=== PATIENT | male | born 1980 | race Two or more races ===

== ENCOUNTER 2020-04-05 11:09 | Emergency (ER) | payer OTHER, SELFPAY ==
[2020-04-05 11:23] VITALS: BP 117/72; PULSE 90; RESP 16; TEMP 37.2; O2SAT 98; BMI 31.5
--- NOTE | 2020-04-05 11:49 | ED_ITS ---
HPI - Eye Problem General Chief complaint: Eye Problems Stated complaint: EYE ISSUE Time Seen by Provider: 04/05/20 11:35 Source: patient Mode of arrival: ambulatory Limitations: no limitations History of Present Illness HPI Narrative: 39-year-old male with a past medical history of hypertension presenting to the ED with complaints of right upper eyelid swelling/redness/irritation for the past day. Reports that he has been rubbing it and has mild purulent discharge coming from the eye. Otherwise denies any other symptoms complaints or concerns at this time. chief complaint: eye redness Onset (ago): day(s) (Yesterday worse today) Onset description: gradual Duration: constant Location: right eye Eye Symptoms: burning, redness, itching and discharge Place: home Mechanism: none Severity: moderate If Pain, Quality: other (Burning sensation) Associated symptoms: none Treatments Prior to Arrival: none Related Data Home Medications Medication Instructions Recorded Confirmed lisinopril 10 mg tablet 10 mg PO DAILY 03/17/20 propranolol 20 mg tablet 30 mg PO BID tab 03/17/20 Previous Rx's Medication Instructions Recorded loratadine 10 mg capsule 10 mg PO DAILY 90 Days #90 cap 04/03/20 cephalexin 500 mg PO BID 10 Days #20 cap 04/05/20 doxycycline monohydrate 100 mg PO BID 10 Days #20 cap 04/05/20 Allergies Allergy/AdvReac Type Severity Reaction Status Date / Time acetaminophen [From TYLENOL] Allergy Unknown UNKNOWN Verified 04/05/20 11:49 aspirin Allergy Unknown Unknown Verified 04/05/20 11:49 haloperidol [Haldol] Allergy Unknown Unknown Verified 04/05/20 11:49 risperidone [Risperdal] Allergy Unknown Unknown Verified 04/05/20 11:49 tramadol Allergy Unknown Unknown Verified 04/05/20 11:49 Aspirin Allergy Unknown Unknown Uncoded 04/05/20 11:49 Motrin Allergy Unknown Unknown Uncoded 04/05/20 11:49 Review of Systems Review of Systems: Constitutional : No Fever, No Chills, No Fatigue, No Malaise ENT/Mouth : No Hearing loss, No Ear Pain, No Nasal Congestion, No Sinus Pain, No sore throat, No Rhinorrhea Eyes: + eyelid Swelling, + eyelid Redness, + discharge, No Foreign Body, No Vision Changes, No Eye Pain, Cardiovascular : No Chest Pain, No SOB Respiratory : No Cough, No Sputum, No Wheezing Gastrointestinal : No Nausea, No Vomiting, No Diarrhea, No Constipation, No abdominal Pain Genitourinary : No Dysuria Musculoskeletal : No joint pain, No Myalgias, No Joint Swelling Skin : No Skin Lesions, No rash Neuro : No Weakness, No Numbness, No Paresthesias, No Loss of Consciousness, No Dizziness, No Headache Yes all other systems are reviewed and are negative [facility] Past Medical History Attestation statement: The following information was validated with the patient. Social History Social History Advance Directives: No Advance Directives Information Provided: No Physical Exam Vital Signs: Vital Signs: Last Vital Signs Temp 98.9 F 04/05/20 11:23 Pulse 90 04/05/20 11:23 Resp 16 04/05/20 11:23 BP 117/72 04/05/20 11:23 Pulse Ox 98 04/05/20 11:23 Body Mass Index 31.5 vital signs have been reviewed as normal and appeared to be correct. Blood pressure normal. Heart rate normal. Respiration rate normal. Temperature normal. Oxygen saturation normal. Appearance: Alert. Oriented X3. No acute distress. Head: Normal external exam. Normocephalic. Atraumatic. No Mercer signs noted. No raccoon eyes noted Eyes: PERRLA. EOMI. Conjunctiva are normal. Cornea are normal. Funduscopic exam within normal limits. Sclera normal. Right upper eyelid erythemous c mild sts and purulent drainage. Right lower eyelid normal WNL. Left upper and lower eyelid WNL. No papilledema noted. Anterior chamber normal. No photophobia noted. ENT: EAC normal. TM's Normal. Pharynx normal. Uvula midline. Moist mucous membranes. Neck: Normal inspection. Neck supple. FROM. No adenopathy. No meningeal signs. CVS: Normal heart rate and rhythm. Heart sound normal. No murmurs noted. Pulses normal throughout. Respiratory: No respiratory distress. Painless inspiration. Breath sounds normal. Back: Full range of motion noted. Skin: Skin warm and dry. Normal skin color. Normal skin turgor. No rashes/lesions/lacerations noted. Extremities: Extremities exhibit normal range of motion. Extremities nontender. Neuro: Oriented X 3. No motor deficit. No sensory deficit. Reflexes normal. Course Course Course Narrative: 39-year-old male presenting to the ED with complaints of right upper eyelid swelling/erythema/irritation/purulent discharge that started yesterday worse today after rubbing his eye. On exam patient is noted to have moderate soft tissue swelling to right upper eyelid with erythema and purulent drainage consistent with blepharitis/preseptal cellulitis not consistent with orbital cellulitis. Patient has extraocular movements intact. 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 Patient understands agrees the plan. MDM - Eye Problem Medical Records Attestation: I reviewed the patient's medical records. Discharge Plan Discharge Clinical Impression: Periorbital cellulitis Qualifiers: Laterality: right Qualified Code(s): L03.213 - Periorbital cellulitis Blepharitis of eyelid of right eye Qualifiers: Blepharitis type: unspecified type Eyelid: upper Qualified Code(s): H01.001 - Unspecified blepharitis right upper eyelid Patient Disposition: Home, Self-Care Instructions: Blepharitis (ED), Periorbital Cellulitis in Adults (ED) Prescriptions: New doxycycline monohydrate 100 mg capsule 100 mg PO BID 10 Days Qty: 20 RF: 0 cephalexin 500 mg capsule 500 mg PO BID 10 Days Qty: 20 RF: 0 No Action loratadine 10 mg capsule 10 mg PO DAILY 90 Days Qty: 90 RF: 1 Referrals: Reece,Neda Dicekrson MD [Primary Care Provider] - 2 days Stand Alone Forms: Work/School Release Print Language: Belarusian
[2020-04-05] MEDS: Erythromycin Base 0.5% Oph Oin 1 GM TUBE 1 CM EYE-RIGHT (11:58)
[2020-04-05] MEDS: cephALEXin 500 MG CAPSULE PO (11:58)
== END 2020-04-05 12:06 | disposition home or self-care (01) ==
PROVIDERS: Emergency Provider Emergency Medicine; PCP Internal Medicine
DX: L03.213 Periorbital cellulitis (principal); H01.001 Unspecified blepharitis right upper eyelid; H57.11 Ocular pain, right eye; Z79.899 Other long term (current) drug therapy
CPT/HCPCS: 99283

== ENCOUNTER 2021-02-11 11:56 | Outpatient (REF) | payer MEDICAID, SELFPAY | END 2021-02-11 11:57 | disposition home or self-care (01) | LOC: HO.LNP 11:56 | PROVIDERS: Visit Provider Psychiatry & Neurology Psychiatry | DX: Z13.89 Encounter for screening for other disorder (principal) ==

== ENCOUNTER 2021-06-18 08:55 | Outpatient (REF) | payer OTHER, SELFPAY ==
[2021-06-18 09:01] LABS: MANUAL DIFF FLAG NO
[2021-06-18 09:37] LABS: Basophils Percent Auto 0.3 % (0-2); Eosinophils Absolute Auto 0.3 X10*3/uL (0.0-0.4); Eosinophils Percent Auto 3.9 % (0-4); Hematocrit 40.2 % (42.0-52.0); Hemoglobin 13.5 g/dl (14.0-18.0); Imm Gran Abs Auto 0.03 X10*3/uL (0.00-0.03); Imm Gran Pct Auto 0.5 % (0.0-0.4); Lymphocytes Absolute Auto 2.4 X10*3/uL (1.2-4.9); Lymphocytes Percent Auto 37.2 % (20-40); Mean Corpuscular HGB Conc 33.6 g/dl (31.0-36.0); Mean Corpuscular Hemoglobin 29.3 pg (27.0-33.0); Mean Corpuscular Volume 87.4 fL (80.0-98.0); Mean Platelet Volume 11.6 fL (9.4-12.4); Monocytes Absolute Auto 0.5 X10*3/uL (0.1-1.2); Monocytes Percent Auto 7.6 % (2-11); Neutrophils Absolute Auto 3.3 x10*3/uL (2.0-8.3); Neutrophils Percent Auto 50.5 % (45-73); Platelet Count 133 X10*3/uL (160-400); Red Cell Distribution Width 13.3 % (11.0-16.0); White Blood Count 6.5 X10*3/uL (4.8-10.8)
== END 2021-06-18 08:56 | disposition home or self-care (01) ==
LOC: HO.LNP 08:55
PROVIDERS: Visit Provider Psychiatry & Neurology Psychiatry
DX: Z79.899 Other long term (current) drug therapy (principal)
CPT/HCPCS: 85025

== ENCOUNTER 2021-07-15 10:08 | Outpatient (REF) | payer OTHER, SELFPAY ==
[2021-07-15 10:15] LABS: MANUAL DIFF FLAG NO
[2021-07-15 10:21] LABS: Basophils Percent Auto 0.3 % (0-2); Eosinophils Absolute Auto 0.3 X10*3/uL (0.0-0.4); Eosinophils Percent Auto 4.8 % (0-4); Hematocrit 38.9 % (42.0-52.0); Hemoglobin 13.1 g/dl (14.0-18.0); Imm Gran Abs Auto 0.02 X10*3/uL (0.00-0.03); Imm Gran Pct Auto 0.3 % (0.0-0.4); Lymphocytes Absolute Auto 2.1 X10*3/uL (1.2-4.9); Lymphocytes Percent Auto 33.3 % (20-40); Mean Corpuscular HGB Conc 33.7 g/dl (31.0-36.0); Mean Corpuscular Hemoglobin 29.2 pg (27.0-33.0); Mean Corpuscular Volume 86.8 fL (80.0-98.0); Mean Platelet Volume 11.5 fL (9.4-12.4); Monocytes Absolute Auto 0.4 X10*3/uL (0.1-1.2); Monocytes Percent Auto 6.4 % (2-11); Neutrophils Absolute Auto 3.5 x10*3/uL (2.0-8.3); Neutrophils Percent Auto 54.9 % (45-73); Platelet Count 156 X10*3/uL (160-400); Red Blood Count 4.48 X10*6/uL (4.60-5.80); Red Cell Distribution Width 13.1 % (11.0-16.0); White Blood Count 6.4 X10*3/uL (4.8-10.8)
== END 2021-07-15 10:09 | disposition home or self-care (01) ==
LOC: HO.LNP 10:08
PROVIDERS: Visit Provider Psychiatry & Neurology Psychiatry
DX: F25.0 Schizoaffective disorder, bipolar type (principal)
CPT/HCPCS: 85025

== ENCOUNTER 2021-08-12 10:59 | Outpatient (REF) | payer OTHER, SELFPAY ==
[2021-08-12 11:06] LABS: MANUAL DIFF FLAG NO
[2021-08-12 11:10] LABS: Basophils Percent Auto 0.3 % (0-2); Eosinophils Absolute Auto 0.5 X10*3/uL (0.0-0.4); Eosinophils Percent Auto 6.2 % (0-4); Hematocrit 39.7 % (42.0-52.0); Hemoglobin 13.8 g/dl (14.0-18.0); Imm Gran Abs Auto 0.03 X10*3/uL (0.00-0.03); Imm Gran Pct Auto 0.4 % (0.0-0.4); Lymphocytes Absolute Auto 2.9 X10*3/uL (1.2-4.9); Lymphocytes Percent Auto 38.2 % (20-40); Mean Corpuscular HGB Conc 34.8 g/dl (31.0-36.0); Mean Corpuscular Hemoglobin 29.9 pg (27.0-33.0); Mean Corpuscular Volume 86.1 fL (80.0-98.0); Monocytes Absolute Auto 0.5 X10*3/uL (0.1-1.2); Monocytes Percent Auto 6.3 % (2-11); Neutrophils Absolute Auto 3.6 x10*3/uL (2.0-8.3); Neutrophils Percent Auto 48.6 % (45-73); Platelet Count 158 X10*3/uL (160-400); Red Blood Count 4.61 X10*6/uL (4.60-5.80); Red Cell Distribution Width 12.9 % (11.0-16.0); White Blood Count 7.5 X10*3/uL (4.8-10.8)
== END 2021-08-12 11:00 | disposition home or self-care (01) ==
LOC: HO.LNP 10:59
PROVIDERS: Visit Provider Psychiatry & Neurology Psychiatry
DX: F25.0 Schizoaffective disorder, bipolar type (principal)
CPT/HCPCS: 85025

== ENCOUNTER 2021-09-16 09:16 | Outpatient (REF) | payer OTHER, SELFPAY ==
[2021-09-16 09:30] LABS: Basophils Percent Auto 0.3 % (0-2); Eosinophils Absolute Auto 0.4 X10*3/uL (0.0-0.4); Eosinophils Percent Auto 5.9 % (0-4); Hematocrit 40.1 % (42.0-52.0); Hemoglobin 13.6 g/dl (14.0-18.0); Imm Gran Abs Auto 0.02 X10*3/uL (0.00-0.03); Imm Gran Pct Auto 0.3 % (0.0-0.4); Lymphocytes Absolute Auto 2.4 X10*3/uL (1.2-4.9); Lymphocytes Percent Auto 36.7 % (20-40); MANUAL DIFF FLAG SCAN; Mean Corpuscular HGB Conc 33.9 g/dl (31.0-36.0); Mean Corpuscular Hemoglobin 29.2 pg (27.0-33.0); Mean Corpuscular Volume 86.2 fL (80.0-98.0); Monocytes Absolute Auto 0.5 X10*3/uL (0.1-1.2); Monocytes Percent Auto 7.2 % (2-11); Neutrophils Absolute Auto 3.3 x10*3/uL (2.0-8.3); Neutrophils Percent Auto 49.6 % (45-73); PLT CLUMP 1; Red Blood Count 4.65 X10*6/uL (4.60-5.80); Red Cell Distribution Width 13.2 % (11.0-16.0); SCAN SMEAR FLAG 1
[2021-09-16 10:17] LABS: White Blood Count 6.6 X10*3/uL (4.8-10.8)
[2021-09-16 10:18] LABS: Platelet Count 138 X10*3/uL (160-400)
[2021-09-16 13:15] LABS: SLIDE REVIEW VERIFIED
== END 2021-09-16 09:17 | disposition home or self-care (01) ==
LOC: HO.LNP 09:16
PROVIDERS: Visit Provider Psychiatry & Neurology Psychiatry
DX: F25.0 Schizoaffective disorder, bipolar type (principal)
CPT/HCPCS: 85025

== ENCOUNTER 2021-10-14 10:45 | Outpatient (REF) | payer OTHER, SELFPAY ==
[2021-10-14 11:06] LABS: Hematocrit 40.3 % (42.0-52.0); Hemoglobin 13.4 g/dl (14.0-18.0); Mean Corpuscular HGB Conc 33.3 g/dl (31.0-36.0); Mean Corpuscular Hemoglobin 28.9 pg (27.0-33.0); Mean Corpuscular Volume 86.9 fL (80.0-98.0); Mean Platelet Volume 11.4 fL (9.4-12.4); Platelet Count 143 X10*3/uL (160-400); Red Blood Count 4.64 X10*6/uL (4.60-5.80); White Blood Count 7.9 X10*3/uL (4.8-10.8)
[2021-10-14 11:50] LABS: Valproate 60.9 mcg/mL (50.0-100.0)
== END 2021-10-14 10:46 | disposition home or self-care (01) ==
LOC: HO.LNP 10:45
PROVIDERS: Visit Provider Psychiatry & Neurology Psychiatry
DX: F25.0 Schizoaffective disorder, bipolar type (principal); Z79.899 Other long term (current) drug therapy
CPT/HCPCS: 80164; 85027

== ENCOUNTER 2021-10-15 08:53 | Outpatient (REF) | payer OTHER, SELFPAY ==
[2021-10-15 09:14] LABS: MANUAL DIFF FLAG NO
[2021-10-15 09:29] LABS: Basophils Percent Auto 0.3 % (0-2); Eosinophils Absolute Auto 0.5 X10*3/uL (0.0-0.4); Eosinophils Percent Auto 6.8 % (0-4); Hematocrit 39.5 % (42.0-52.0); Hemoglobin 13.6 g/dl (14.0-18.0); Imm Gran Abs Auto 0.03 X10*3/uL (0.00-0.03); Imm Gran Pct Auto 0.4 % (0.0-0.4); Lymphocytes Absolute Auto 2.7 X10*3/uL (1.2-4.9); Lymphocytes Percent Auto 37.5 % (20-40); Mean Corpuscular HGB Conc 34.4 g/dl (31.0-36.0); Mean Corpuscular Hemoglobin 29.4 pg (27.0-33.0); Mean Corpuscular Volume 85.5 fL (80.0-98.0); Mean Platelet Volume 11.1 fL (9.4-12.4); Monocytes Absolute Auto 0.5 X10*3/uL (0.1-1.2); Monocytes Percent Auto 6.8 % (2-11); Neutrophils Absolute Auto 3.5 x10*3/uL (2.0-8.3); Neutrophils Percent Auto 48.2 % (45-73); Platelet Count 141 X10*3/uL (160-400); Red Blood Count 4.62 X10*6/uL (4.60-5.80); Red Cell Distribution Width 12.9 % (11.0-16.0); White Blood Count 7.2 X10*3/uL (4.8-10.8)
[2021-10-15 09:42] LABS: Estimated Average Glucose 111 mg/dL; Hemoglobin A1c % 5.5 %
[2021-10-15 09:55] LABS: Alanine Aminotransferase 49 U/L (0-40); Albumin Level 4.5 g/dL (3.5-5.0); Alkaline Phosphatase 86 U/L (39-117); Anion Gap 15 (12-20); Aspartate Amino Transferase 24 U/L (5-37); Bilirubin Total 0.3 mg/dL (0.0-1.0); Blood Urea Nitrogen 11 mg/dL (9-16); Calcium 9.4 mg/dL (8.4-10.2); Carbon Dioxide 26 mmol/L (22-29); Chloride 103 mmol/L (96-108); Cholesterol 202 mg/dL; Estimated Glomerular Filt Rate > 60; Glucose Random 113 mg/dL (60-115); HDL Cholesterol 37 mg/dL; LDL Cholesterol Calculated 132 mg/dl; Potassium 4.2 mmol/L (3.3-5.1); Sodium 140 mmol/L (135-145); Total Protein 7.3 g/dL (6.5-8.0); Triglycerides 165 mg/dL
[2021-10-15 10:15] LABS: Thyroid Stimulating Hormone 2.06 uIU/mL (0.32-4.0)
[2021-10-15 10:24] LABS: Gamma Glutamyl Transpeptidase 111 U/L (11-51)
== END 2021-10-15 08:54 | disposition home or self-care (01) ==
LOC: HO.LNP 08:53
PROVIDERS: Visit Provider Psychiatry & Neurology Psychiatry
DX: F25.0 Schizoaffective disorder, bipolar type (principal)
CPT/HCPCS: 80053; 80061; 82977; 83036; 84443; 85025

== ENCOUNTER 2021-11-19 18:04 | Outpatient (REF) | payer OTHER, SELFPAY ==
[2021-11-19 18:07] LABS: MANUAL DIFF FLAG NO
[2021-11-19 18:26] LABS: Basophils Percent Auto 0.2 % (0-2); Eosinophils Absolute Auto 0.3 X10*3/uL (0.0-0.4); Eosinophils Percent Auto 3.2 % (0-4); Hematocrit 38.5 % (42.0-52.0); Hemoglobin 13.3 g/dl (14.0-18.0); Imm Gran Abs Auto 0.06 X10*3/uL (0.00-0.03); Imm Gran Pct Auto 0.7 % (0.0-0.4); Lymphocytes Absolute Auto 2.8 X10*3/uL (1.2-4.9); Lymphocytes Percent Auto 34.5 % (20-40); Mean Corpuscular HGB Conc 34.5 g/dl (31.0-36.0); Mean Corpuscular Hemoglobin 28.9 pg (27.0-33.0); Mean Corpuscular Volume 83.7 fL (80.0-98.0); Mean Platelet Volume 11.2 fL (9.4-12.4); Monocytes Absolute Auto 0.4 X10*3/uL (0.1-1.2); Monocytes Percent Auto 5.1 % (2-11); Neut%MD 56.3 %; Neutrophils Absolute Auto 4.6 x10*3/uL (2.0-8.3); Neutrophils Percent Auto 56.3 % (45-73); Platelet Count 187 X10*3/uL (160-400); WBCANC 8.1 X10*3/uL; White Blood Count 8.1 X10*3/uL (4.8-10.8)
== END 2021-11-19 18:05 | disposition home or self-care (01) ==
LOC: HO.LNP 18:04
PROVIDERS: Visit Provider Psychiatry & Neurology Psychiatry
DX: F25.0 Schizoaffective disorder, bipolar type (principal)
CPT/HCPCS: 85025

== ENCOUNTER 2021-12-17 12:10 | Outpatient (REF) | payer OTHER, SELFPAY ==
[2021-12-17 12:33] LABS: Hematocrit 42.1 % (42.0-52.0); Mean Corpuscular HGB Conc 33.3 g/dl (31.0-36.0); Mean Corpuscular Hemoglobin 29.2 pg (27.0-33.0); Mean Corpuscular Volume 87.7 fL (80.0-98.0); Mean Platelet Volume 12.1 fL (9.4-12.4); Platelet Count 177 X10*3/uL (160-400); Red Cell Distribution Width 12.9 % (11.0-16.0); White Blood Count 7.4 X10*3/uL (4.8-10.8)
== END 2021-12-17 12:11 | disposition home or self-care (01) ==
LOC: HO.LNP 12:10
PROVIDERS: Visit Provider Psychiatry & Neurology Psychiatry
DX: F25.0 Schizoaffective disorder, bipolar type (principal)
CPT/HCPCS: 85027

== ENCOUNTER 2022-01-07 08:59 | Outpatient (REF) | payer OTHER, SELFPAY ==
--- NOTE | ~2022-01-07 | XR_ITS ---
EXAMINATION: XR chest 2V CLINICAL INFORMATION: Reason for Exam Z98.890 - Other specified postprocedural states COMPARISON: Chest radiograph 05/27/2016 TECHNIQUE: 2 views of the chest FINDINGS: Clear lungs. No pneumothorax or pleural effusion. Normal cardiomediastinal silhouette. Median sternotomy wires. XR/XR chest 2V Impression: * Clear lungs.
[2022-01-07 09:19] LABS: MANUAL DIFF FLAG NO
[2022-01-07 09:50] LABS: Basophils Percent Auto 0.3 % (0-2); Eosinophils Absolute Auto 0.3 X10*3/uL (0.0-0.4); Eosinophils Percent Auto 4.9 % (0-4); Hematocrit 39.6 % (42.0-52.0); Hemoglobin 13.6 g/dl (14.0-18.0); Imm Gran Abs Auto 0.02 X10*3/uL (0.00-0.03); Imm Gran Pct Auto 0.3 % (0.0-0.4); Lymphocytes Percent Auto 33.9 % (20-40); Mean Corpuscular HGB Conc 34.3 g/dl (31.0-36.0); Mean Corpuscular Hemoglobin 29.7 pg (27.0-33.0); Mean Corpuscular Volume 86.5 fL (80.0-98.0); Mean Platelet Volume 11.4 fL (9.4-12.4); Monocytes Absolute Auto 0.3 X10*3/uL (0.1-1.2); Monocytes Percent Auto 5.6 % (2-11); Neutrophils Absolute Auto 3.2 x10*3/uL (2.0-8.3); Platelet Count 141 X10*3/uL (160-400); Red Blood Count 4.58 X10*6/uL (4.60-5.80); Red Cell Distribution Width 12.5 % (11.0-16.0); White Blood Count 5.8 X10*3/uL (4.8-10.8)
[2022-01-07 10:17] LABS: Estimated Average Glucose 108 mg/dL; Hemoglobin A1c % 5.4 %
[2022-01-07 10:18] LABS: Estimated Average Glucose 108 mg/dL; Hemoglobin A1c % 5.4 %
[2022-01-07 10:21] LABS: Alanine Aminotransferase 52 U/L (0-40); Albumin Level 4.7 g/dL (3.5-5.0); Alkaline Phosphatase 85 U/L (39-117); Anion Gap 16 (12-20); Aspartate Amino Transferase 28 U/L (5-37); Bilirubin Total 0.8 mg/dL (0.0-1.0); Blood Urea Nitrogen 17 mg/dL (9-16); Calcium 9.5 mg/dL (8.4-10.2); Carbon Dioxide 26 mmol/L (22-29); Chloride 101 mmol/L (96-108); Cholesterol 189 mg/dL; Estimated Glomerular Filt Rate > 60; Glucose Random 119 mg/dL (60-115); HDL Cholesterol 40 mg/dL; LDL Cholesterol Calculated 122 mg/dl; Potassium 4.2 mmol/L (3.3-5.1); Sodium 139 mmol/L (135-145); Total Protein 7.5 g/dL (6.5-8.0); Triglycerides 138 mg/dL
[2022-01-07 10:27] LABS: B Type Natriuretic Peptide 60 pg/mL (<100)
[2022-01-07 10:39] LABS: Free T4 (Free Thyroxine) 1.12 ng/dL (0.71-1.85)
[2022-01-07 10:42] LABS: Free T4 (Free Thyroxine) 0.99 ng/dL (0.71-1.85); Thyroid Stimulating Hormone 1.94 uIU/mL (0.32-4.0)
[2022-01-07 10:48] LABS: Valproate 56.8 mcg/mL (50.0-100.0)
[2022-01-07 11:16] LABS: Folate 6.7 ng/mL (> or = 4.0); Vitamin B12 326 pg/mL (200-900)
== END 2022-01-07 09:00 | disposition home or self-care (01) ==
LOC: HO.XRAY 08:59
PROVIDERS: Absent Provider Internal Medicine; PCP Internal Medicine; Visit Provider Psychiatry & Neurology Psychiatry
DX: I10 Essential (primary) hypertension (principal); R73.02 Impaired glucose tolerance (oral); K21.9 Gastro-esophageal reflux disease without esophagitis; E78.00 Pure hypercholesterolemia, unspecified; Z86.79 Personal history of other diseases of the circulatory system; Z98.890 Other specified postprocedural states; Z79.899 Other long term (current) drug therapy
CPT/HCPCS: 36415; 71046; 80053; 80061; 80164; 82607; 82746; 83036; 83880; 84439; 84443; 85025

== ENCOUNTER 2022-01-14 10:18 | Outpatient (REF) | payer OTHER, SELFPAY ==
[2022-01-14 10:26] LABS: MANUAL DIFF FLAG NO
[2022-01-14 10:29] LABS: Basophils Percent Auto 0.3 % (0-2); Eosinophils Absolute Auto 0.3 X10*3/uL (0.0-0.4); Eosinophils Percent Auto 4.2 % (0-4); Hematocrit 42.6 % (42.0-52.0); Hemoglobin 14.3 g/dl (14.0-18.0); Imm Gran Abs Auto 0.03 X10*3/uL (0.00-0.03); Imm Gran Pct Auto 0.4 % (0.0-0.4); Lymphocytes Absolute Auto 2.5 X10*3/uL (1.2-4.9); Lymphocytes Percent Auto 35.4 % (20-40); Mean Corpuscular HGB Conc 33.6 g/dl (31.0-36.0); Mean Corpuscular Hemoglobin 29.1 pg (27.0-33.0); Mean Corpuscular Volume 86.6 fL (80.0-98.0); Monocytes Absolute Auto 0.4 X10*3/uL (0.1-1.2); Monocytes Percent Auto 6.3 % (2-11); Neutrophils Absolute Auto 3.7 x10*3/uL (2.0-8.3); Neutrophils Percent Auto 53.4 % (45-73); Platelet Count 154 X10*3/uL (160-400); Red Blood Count 4.92 X10*6/uL (4.60-5.80); Red Cell Distribution Width 12.6 % (11.0-16.0); White Blood Count 6.9 X10*3/uL (4.8-10.8)
== END 2022-01-14 10:19 | disposition home or self-care (01) ==
LOC: HO.LNP 10:18
PROVIDERS: Visit Provider Psychiatry & Neurology Psychiatry
DX: F25.0 Schizoaffective disorder, bipolar type (principal)
CPT/HCPCS: 85025

== ENCOUNTER 2022-02-10 09:37 | Outpatient (REF) | payer OTHER, SELFPAY ==
[2022-02-10 09:47] LABS: MANUAL DIFF FLAG NO
[2022-02-10 09:49] LABS: Basophils Percent Auto 0.4 % (0-2); Eosinophils Absolute Auto 0.3 X10*3/uL (0.0-0.4); Eosinophils Percent Auto 3.7 % (0-4); Hematocrit 40.3 % (42.0-52.0); Hemoglobin 13.7 g/dl (14.0-18.0); Imm Gran Abs Auto 0.03 X10*3/uL (0.00-0.03); Imm Gran Pct Auto 0.4 % (0.0-0.4); Lymphocytes Absolute Auto 2.9 X10*3/uL (1.2-4.9); Lymphocytes Percent Auto 36.1 % (20-40); Mean Corpuscular Hemoglobin 28.8 pg (27.0-33.0); Mean Corpuscular Volume 84.8 fL (80.0-98.0); Mean Platelet Volume 10.7 fL (9.4-12.4); Monocytes Absolute Auto 0.5 X10*3/uL (0.1-1.2); Monocytes Percent Auto 6.7 % (2-11); Neutrophils Absolute Auto 4.2 x10*3/uL (2.0-8.3); Neutrophils Percent Auto 52.7 % (45-73); Platelet Count 167 X10*3/uL (160-400); Red Blood Count 4.75 X10*6/uL (4.60-5.80); Red Cell Distribution Width 12.7 % (11.0-16.0); White Blood Count 8.1 X10*3/uL (4.8-10.8)
== END 2022-02-10 09:38 | disposition home or self-care (01) ==
LOC: HO.LNP 09:37
PROVIDERS: Visit Provider Psychiatry & Neurology Psychiatry
DX: F25.0 Schizoaffective disorder, bipolar type (principal)
CPT/HCPCS: 85025

== ENCOUNTER 2022-03-18 09:38 | Outpatient (REF) | payer OTHER, SELFPAY ==
[2022-03-18 09:45] LABS: MANUAL DIFF FLAG NO
[2022-03-18 09:50] LABS: Basophils Percent Auto 0.3 % (0-2); Eosinophils Absolute Auto 0.3 X10*3/uL (0.0-0.4); Eosinophils Percent Auto 3.6 % (0-4); Hematocrit 40.4 % (42.0-52.0); Hemoglobin 13.7 g/dl (14.0-18.0); Imm Gran Abs Auto 0.03 X10*3/uL (0.00-0.03); Imm Gran Pct Auto 0.4 % (0.0-0.4); Lymphocytes Absolute Auto 2.4 X10*3/uL (1.2-4.9); Lymphocytes Percent Auto 34.4 % (20-40); Mean Corpuscular HGB Conc 33.9 g/dl (31.0-36.0); Mean Corpuscular Hemoglobin 28.6 pg (27.0-33.0); Mean Corpuscular Volume 84.3 fL (80.0-98.0); Mean Platelet Volume 11.6 fL (9.4-12.4); Monocytes Absolute Auto 0.4 X10*3/uL (0.1-1.2); Monocytes Percent Auto 5.6 % (2-11); Neutrophils Absolute Auto 3.9 x10*3/uL (2.0-8.3); Neutrophils Percent Auto 55.7 % (45-73); Platelet Count 154 X10*3/uL (160-400); Red Blood Count 4.79 X10*6/uL (4.60-5.80); Red Cell Distribution Width 12.7 % (11.0-16.0)
== END 2022-03-18 09:39 | disposition home or self-care (01) ==
LOC: HO.LNP 09:38
PROVIDERS: Visit Provider Psychiatry & Neurology Psychiatry
DX: F25.0 Schizoaffective disorder, bipolar type (principal)
CPT/HCPCS: 85025

== ENCOUNTER 2022-04-15 08:57 | Outpatient (REF) | payer OTHER, SELFPAY ==
[2022-04-15 09:17] LABS: Hemoglobin 12.9 g/dl (14.0-18.0); Mean Corpuscular HGB Conc 33.9 g/dl (31.0-36.0); Mean Corpuscular Hemoglobin 29.3 pg (27.0-33.0); Mean Corpuscular Volume 86.4 fL (80.0-98.0); Mean Platelet Volume 11.7 fL (9.4-12.4); Platelet Count 152 X10*3/uL (160-400); White Blood Count 6.8 X10*3/uL (4.8-10.8)
== END 2022-04-15 08:58 | disposition home or self-care (01) ==
LOC: HO.LNP 08:57
PROVIDERS: Visit Provider Psychiatry & Neurology Psychiatry
DX: F25.0 Schizoaffective disorder, bipolar type (principal)
CPT/HCPCS: 85027

== ENCOUNTER 2022-06-17 09:26 | Outpatient (REF) | payer OTHER, SELFPAY ==
[2022-06-17 09:33] LABS: MANUAL DIFF FLAG NO
[2022-06-17 09:36] LABS: Basophils Absolute Auto 0.1 X10*3/uL (0.0-0.2); Basophils Percent Auto 0.6 % (0-2); Eosinophils Absolute Auto 0.6 X10*3/uL (0.0-0.4); Eosinophils Percent Auto 7.5 % (0-4); Hematocrit 42.5 % (42.0-52.0); Hemoglobin 14.4 g/dl (14.0-18.0); Imm Gran Abs Auto 0.04 X10*3/uL (0.00-0.03); Imm Gran Pct Auto 0.5 % (0.0-0.4); Lymphocytes Absolute Auto 2.8 X10*3/uL (1.2-4.9); Lymphocytes Percent Auto 35.4 % (20-40); Mean Corpuscular HGB Conc 33.9 g/dl (31.0-36.0); Mean Corpuscular Hemoglobin 29.1 pg (27.0-33.0); Mean Corpuscular Volume 85.9 fL (80.0-98.0); Mean Platelet Volume 10.8 fL (9.4-12.4); Monocytes Absolute Auto 0.5 X10*3/uL (0.1-1.2); Monocytes Percent Auto 6.2 % (2-11); Neutrophils Percent Auto 49.8 % (45-73); Platelet Count 155 X10*3/uL (160-400); Red Blood Count 4.95 X10*6/uL (4.60-5.80); Red Cell Distribution Width 12.8 % (11.0-16.0)
== END 2022-06-17 09:27 | disposition home or self-care (01) ==
LOC: HO.LNP 09:26
PROVIDERS: Visit Provider Psychiatry & Neurology Psychiatry
DX: F25.0 Schizoaffective disorder, bipolar type (principal)
CPT/HCPCS: 85025

== ENCOUNTER 2022-11-09 14:09 | Outpatient (AMB) | payer OTHER, SELFPAY ==
--- NOTE | 2022-11-09 14:28 | A.OFFPC_ITS ---
Vital Signs 11/09/22 14:29 Height 5 ft 10 in Weight 208 lb BMI 29.8 BP 132/76 Blood Pressure Location Lt brachial Position Sitting Pulse 77 Pulse Source Pulse Oximeter Pulse Oximetry (%) 98 Oxygen Delivery Method Room Air Intake Visit Reasons: AVRepair, HTN Allergies acetaminophen [From TYLENOL] Allergy (Unknown, Verified 11/09/22 14:29) UNKNOWN aspirin Allergy (Unknown, Verified 11/09/22 14:29) Unknown haloperidol [Haldol] Allergy (Unknown, Verified 11/09/22 14:29) Unknown risperidone [Risperdal] Allergy (Unknown, Verified 11/09/22 14:29) Unknown tramadol Allergy (Unknown, Verified 11/09/22 14:29) Unknown diphenhydramine [From Benadryl Allergy] Adverse Reaction (Verified 11/09/22 14:29) HTN Motrin Allergy (Unknown, Uncoded 11/09/22 14:29) Unknown Tobacco use date assessed: 07/19/22 Dental Screening Dental Screen Date: 11/09/22 Did you have a dental visit in the last 12 months?: No Did you have a dental problem in the last 6 months where you did not have access to dental care?: No Was dental information given to patient?: No HPI AVRepair, HTN HPI Details 42-year-old male witha history of schiz ophrenia with impaired glucose tolerance GERD aortic valve repair hypertension, coming in for follow-up last seen in June 2022 for physical exam. Patient was advised blood work but this was not done [facility] Medical History (Updated 11/09/22 @ 15:16 by Neda Newell MD) Obesity (BMI 30-39.9) GERD (gastroesophageal reflux disease) Schizophrenia Surgical History (Updated 07/19/22 @ 12:45 by Neda Newell MD) H/O aortic valve repair Social History (Updated 07/13/21 @ 13:18 by Neda Newell MD) Housing: Apartment Alcohol intake: never Patient Tobacco Use Status: Former Tobacco user Tobacco use type: Cigarette Years Smoked: quit smoking 2019 e-Cigarette/Vaping Use: Never Used Second Hand Smoke Exposure: No Current occupational status: employed Cognitive needs: No Hearing needs: No Vision needs: No Questionnaire PHQ-9 Over the last 2 weeks, how often have you been bothered by any of the following problems? 1. Little interest or pleasure in doing things: not at all 2. Feeling down, depressed, or hopeless: not at all 3. Trouble falling or staying asleep, or sleeping too much: not at all 4. Feeling tired or having little energy: not at all 5. Poor appetite or overeating: not at all 6. Feeling bad about yourself - or that you are a failure or have let yourself or your family down: not at all 7. Trouble concentrating on things, such as reading the newspaper or watching television: not at all 8. Moving or speaking so slowly that other people could have noticed. Or the opposite - being so fidgety or restless that you have been moving around a lot more than usual: not at all 9. Thoughts that you would be better off or of hurting yourself in some way: not at all Total score: 0 Depression Screening Interpretation: Negative Source: Developed by Drs. Jag Cleary, Paris Juárez, Paulino Slater and colleagues, with an educational alysha from [employer]. Thrive Questionnaire Date Thrive assessed: 07/19/22 AUDIT C Alcohol Use Questionnaire (AUDIT-C) 1. How often do you have a drink containing alcohol?: Never 2. How many drinks containing alcohol do you have on a typical day when you are drinking?: 1 or 2 (0) 3. How often do you have six or more drinks on one occasion?: Never Total Score: 0 ALEXSANDER-7 AMB Questionnaire ALEXSANDER-7 Date ALEXSANDER - 7 assessed: 07/19/22 Source: Developed by Drs. Jag Cleary, Paris Juárez, Paulino Slater and colleagues, with an educational alysha from [employer]. Physical exam (Primary Care) Vital Signs: Last Vital Signs Pulse 77 11/09/22 14:29 BP 132/76 11/09/22 14:29 Pulse Ox 98 11/09/22 14:29 Oxygen Delivery Method Room Air 11/09/22 14:29 BMI result Body Mass Index 29.8 Tobacco/Smoking Status: Tobacco use Status Tobacco use date assessed 07/19/22 11/09/22 14:30 Patient Tobacco Use Status Former Tobacco user 11/09/22 14:30 Tobacco use type Cigarette 11/09/22 14:30 e-Cigarette/Vaping Use Never Used 11/09/22 14:30 PHQ-9: PHQ-9 Score PHQ-9: Total score 0 11/09/22 14:45 Depression Screening Interpretation: Negative Thrive Assessment: Date of Thrive Assessment Date Thrive assessed 07/19/22 11/09/22 14:30 Const General: alert; No acute distress Eyes Conjunctivae: conjunctivae normal Resp Auscultation: clear to auscultation bilaterally Cardio Rate: regular rate Rhythm: regular rhythm Heart sounds: Murmur heart sound present GI Inspection: Yes normal to inspection Extrem General: Yes normal to inspection and No edema Assessment and Plan Assessment & Plan (1) Hypertension: Code(s): I10 - Essential (primary) hypertension Qualifiers: Hypertension type: essential hypertension Qualified Code(s): I10 - Essential (primary) hypertension Plan: Continue with blood pressure medication. Decrease salt intake and exercise patient is taking lisinopril 10 mg once a day and propranolol 30 mg twice reminded about the blood work (2) Overweight (BMI 25.0-29.9): Code(s): E66.3 - Overweight Plan: Diet and exercise (3) GERD (gastroesophageal reflux disease): Code(s): K21.9 - Gastro-esophageal reflux disease without esophagitis Qualifiers: Esophagitis presence: without esophagitis Qualified Code(s): K21.9 - Gastro-esophageal reflux disease without esophagitis Plan: Avoid the foods that causes that usually spicy foods, tomato products, juices, coffee, soda and foods that your sensitive to. After eating do not lie down, allow 3-4 hours before in lie down. And keep the head of bed above 30 degrees to avoid the acid from going up. (4) Impaired glucose tolerance: Code(s): R73.02 - Impaired glucose tolerance (oral) Plan: Decrease the amount of carbohydrate intake, pasta, bread, rice and potatoes are all sugar and that is aside from all the sweet stuff, remember that fruits are good but they are Sweet also. 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
[2022-11-09 14:29] VITALS: BP 132/76; PULSE 77; O2SAT 98; BMI 29.8
== END 2022-11-09 15:26 | disposition home or self-care (01) ==
PROVIDERS: PCP Internal Medicine; Visit Provider Internal Medicine
DX: I10 Essential (primary) hypertension (principal); K21.9 Gastro-esophageal reflux disease without esophagitis; Z98.890 Other specified postprocedural states; Z86.79 Personal history of other diseases of the circulatory system; E66.3 Overweight; R73.02 Impaired glucose tolerance (oral)
CPT/HCPCS: 99214

== ENCOUNTER 2024-01-05 11:00 | Outpatient (AMB) | payer OTHER, SELFPAY ==
--- NOTE | 2024-01-05 11:02 | A.OFFPC_ITS ---
Vital Signs 01/05/24 11:03 Height 5 ft 10 in Weight 206 lb BMI 29.6 BP 106/64 Blood Pressure Location Lt brachial Position Sitting Pulse 95 Pulse Source Pulse Oximeter Pulse Oximetry (%) 96 Oxygen Delivery Method Room Air Intake Visit Reasons: annual exam Intake Note: Patient is here today for a physical. Security Clerk Required: No Allergies acetaminophen [From TYLENOL] Allergy (Unknown, Verified 01/05/24 11:14) UNKNOWN aspirin Allergy (Unknown, Verified 01/05/24 11:14) Unknown haloperidol [Haldol] Allergy (Unknown, Verified 01/05/24 11:14) Unknown risperidone [Risperdal] Allergy (Unknown, Verified 01/05/24 11:14) Unknown tramadol Allergy (Unknown, Verified 01/05/24 11:14) Unknown diphenhydramine [From Benadryl Allergy] Adverse Reaction (Verified 01/05/24 11:14) HTN Motrin Allergy (Unknown, Uncoded 01/05/24 11:14) Unknown Medication List - Last Reconciled 01/05/24 by Brooklynn Irby PA-C amoxicillin 2,000 mg PO 1 hour before the procedure; 1 day aripiprazole (Abilify) PO bedtime; benztropine 1 mg QD clozapine 200 mg PO BEDTIME clozapine 100 mg QD 200 mg QHS, 25 mg QHS PO; clozapine 25 mg PO BEDTIME divalproex ER 500 mg PO DAILY divalproex ER 250 mg PO DAILY lisinopril 10 mg PO DAILY loratadine 10 mg PO DAILY mirtazapine 7.5 mg PO BEDTIME nicotine 1 patch transdermal DAILY nicotine (polacrilex) 2 mg buccal Q2H omeprazole 40 mg PO DAILY 90 days polymyxin B sulf-trimethoprim 10,000 unit- 1 mg/mL (Polytrim) 1 drp ophthalmic- Right Q3H 7 days propranolol 30 mg (1.5 x 20 mg) PO BID Tobacco use date assessed: 01/05/24 Dental Screening Dental Screen Date: 01/05/24 Did you have a dental visit in the last 12 months?: Yes Did you have a dental problem in the last 6 months where you did not have access to dental care?: No Was dental information given to patient?: Patient has dentist HPI annual exam HPI Details 43-year-old male with past medical histo ry of schizophrenia, impaired glucose tolerance, GERD, aortic valve repair, hypertension last seen October 2022 coming in for annual exam. In review of the notes, patient has saw [facility] 07/26/2023 advise no change in current medications and follow up in 1 year with repeat echocardiogram. Patient follows with psychiatrist in [place] and sees them monthly. Does not have mental health counselor. He has no acute concerns today. [facility] Medical History Obesity (BMI 30-39.9) GERD (gastroesophageal reflux disease) Schizophrenia Surgical History H/O aortic valve repair Social History Housing: Apartment Alcohol intake: never Patient Tobacco Use Status: Former Tobacco user Tobacco use type: Cigarette Years Smoked: quit smoking 2020 e-Cigarette/Vaping Use: Never Used Second Hand Smoke Exposure: No Current occupational status: employed Cognitive needs: No Hearing needs: No Vision needs: No Questionnaire PHQ-9 Over the last 2 weeks, how often have you been bothered by any of the following problems? 1. Little interest or pleasure in doing things: not at all 2. Feeling down, depressed, or hopeless: not at all 3. Trouble falling or staying asleep, or sleeping too much: not at all 4. Feeling tired or having little energy: not at all 5. Poor appetite or overeating: not at all 6. Feeling bad about yourself - or that you are a failure or have let yourself or your family down: not at all 7. Trouble concentrating on things, such as reading the newspaper or watching television: several days 8. Moving or speaking so slowly that other people could have noticed. Or the opposite - being so fidgety or restless that you have been moving around a lot more than usual: not at all 9. Thoughts that you would be better off or of hurting yourself in some way: not at all Total score: 1 Depression Screening Interpretation: Negative Depression Screening Done: Yes 11257 - PHQ-9 Billing: Yes Source: Developed by Drs. Jag Cleary, Paris Paulino Kumari and colleagues, with an educational alysha from [employer]. Thrive Questionnaire Date Thrive assessed: 01/05/24 I am a: Patient What is your living situation today?: I have a steady place to live Within the past 12 months, did the food you bought not last and you didn't have the money to get more?: Never true Within the past 12 months, did you worry whether your food would run out before you got money to buy more?: Never true Do you have trouble paying for medicines?: No Do you have trouble getting transportation to medical appointments?: No Do you have trouble paying your heating and electricity bill?: No Do you have trouble taking care of your child, family member or friend?: No Do you have trouble with day-to-day activities such as bathing, preparing meals, shopping, managing finances, etc.?: No Are you currently unemployed and looking for a job?: No Are you interested in more education?: No Please select the resources that you would like help with: None Currently or been in a relationship where the following occur: I choose not to answer THRIVE Score: 0 AUDIT C Alcohol Use Questionnaire (AUDIT-C) 1. How often do you have a drink containing alcohol?: Never 3. How often do you have six or more drinks on one occasion?: Never Total Score: 0 ALEXSANDER-7 AMB Questionnaire ALEXSANDER-7 Date ALEXSANDER - 7 assessed: 01/05/24 Feeling nervous, anxious, or on edge: 0 = Not at all Not being able to stop or control worryin = Nearly every day Worrying too much about different things: 0 = Not at all Trouble relaxin = Not at all Being so restless that it is hard to sit still: 0 = Not at all Becoming easily annoyed or irritable: 0 = Not at all Feeling afraid as if something awful might happen: 0 = Not at all Total ALEXSANDER-7 score (0-4 normal; 5-9 mild; 10-14 moderate; 15-21 severe): 3 Source: Developed by Drs. Jag Cleary, Paulino Palm and colleagues, with an educational alysha from [employer]. ALEXSANDER-7 Assessment Billing ALEXSANDER-7 Assessment Tool: ALEXSANDER-7 Assessment 52164 Review of Systems Const Denies body aches, Denies fatigue, Denies fever(s), Denies frequent falls, Denies headache(s) and Denies weakness Eyes Reports no additional complaints and Denies change in vision ENT Denies dysphagia, Denies dizziness, Denies facial pain, Denies headache(s), Denies nasal congestion and Denies odynophagia Card Denies chest pain, Denies syncope, Denies irregular heart rhythm, Denies leg edema, Denies lightheadedness and Denies dyspnea Resp Denies cough and Denies dyspnea GI Denies abdominal pain, Denies constipation, Denies dysphagia, Reports dyspepsia, Reports heartburn, Denies diarrhea, Denies nausea, Denies odynophagia and Denies vomiting Denies dysuria, Denies urinary frequency, Denies urinary hesitancy and Denies urinary urgency Musc Denies back pain and Denies myalgias Skin/Breast Reports system reviewed and no additional complaints, except as documented Neuro Denies dizziness, Denies syncope, Denies frequent falls, Denies headache(s) and Denies weakness Psych Reports no additional complaints Endo Denies fatigue Physical exam (Primary Care) Vital Signs: Last Vital Signs Pulse 95 01/05/24 11:03 BP 106/64 01/05/24 11:03 Pulse Ox 96 01/05/24 11:03 Oxygen Delivery Method Room Air 01/05/24 11:03 BMI result Body Mass Index 29.6 BMI Assessment/Plan discussion: High BMI High, discussed plan: lifestyle, weight reduction and physical activity Tobacco/Smoking Status: Tobacco use Status Tobacco use date assessed 01/05/24 01/05/24 11:07 Patient Tobacco Use Status Former Tobacco user 01/05/24 11:07 Tobacco use type Cigarette 01/05/24 11:07 e-Cigarette/Vaping Use Never Used 01/05/24 11:07 PHQ-9: PHQ-9 Score PHQ-9: Total score 1 01/05/24 11:17 Depression Screening Interpretation: Negative Thrive Assessment: Date of Thrive Assessment Date Thrive assessed 01/05/24 01/05/24 11:07 Currently or been in a relationship where the following occur: I choose not to answer Const General: cooperative, healthy appearing, comfortable and no acute distress Orientation/consciousness: patient oriented x3 HENMT Head: Yes normocephalic Ears: hearing grossly normal bilaterally, external ears normal, TM's normal bilaterally and EAC's normal General nose exam: Normal external nose present Face and sinus: Yes normal facial exam and Yes sinuses nontender Mouth: Normal oral and palatal mucosa present and tongue normal Throat: Yes posterior oropharynx normal Eyes General: appearance normal, both eyes and all related structures Conjunctivae: conjunctivae normal Pupils: Equal, round and reactive pupils present EOM: EOMs intact bilaterally and No Nystagmus present Neck Neck: Yes normal visual inspection, Yes full ROM and Yes no lymphadenopathy Chest Chest palpation & inspection: normal inspection of the chest Resp Effort & Inspection: normal respiratory effort Auscultation: clear to auscultation bilaterally, no crackles, no rales, no rhonchi, no wheezes and breath sounds present Cardio Rate: regular rate Rhythm: regular rhythm Peripheral pulses: radial pulses present and dorsalis pedis present GI Inspection: Yes normal to inspection and No Abdominal wall edema Palpation (GI): Soft to palpation, not firm and nontender Auscultation: normal bowel sounds Rectal Exam - Male: Yes deferred General: Yes no CVA tenderness Back/Spine/Pelvis Back: no CVA tenderness Skin General skin exam: no rashes or lesions noted Neuro General: patient oriented x3 Cranial nerves: Yes Equal, round and reactive pupils present, Yes Midline tongue present, Yes Ability to bilaterally elevate shoulders present and No Nystagmus present Gait exam (Neuro): Normal gait present Extrem General: Yes normal to inspection, Yes full ROM, No no pedal edema and No edema Psych Speech and movement: Normal speech and movement present Affect: normal affect Insight: Good insight present (Psych) Judgement: Good judgement present (Psych) Coding Level of Care Code Est Pt Prev Care 40-64y(46402) Diagnoses Overweight (BMI 25.0-29.9) E66.3 H/O aortic valve repair Z98.890; Z86.79 Impaired glucose tolerance R73.02 Annual physical exam Z00.00 Gastroesophageal reflux disease without esophagitis K21.9 Esophagitis presence: without esophagitis 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 Cardiac valve disease etiology: nonrheumatic Schizophrenia, unspecified type F20.9 Schizophrenia type: unspecified Essential hypertension I10 Hypertension type: essential hypertension Additional Codes ALEXSANDER-7 Assessment Billing - ALEXSANDER-7 Assessment Tool: ALEXSANDER-7 Assessment 04526 ([id number]) PHQ-9 - 54780 - PHQ-9 Billing: Yes ([id number]) Assessment & Plan Assessment & Plan (1) Overweight (BMI 25.0-29.9): Code(s): E66.3 - Overweight Category: Medical Plan: Healthy diet and regular exercise is encouraged. 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 Cabral adult congenital heart disease fellow no surgery recommend May 2021 Echocardiogram 06/2023 normal left ventricular size EF 55-60% mild dilated left atrium [id number] mitral stenosis valve area 1.5 cm2 moderate to severe pulmonic stenosis Code(s): Z98.890 - Other specified postprocedural states; Z86.79 - Personal history of other diseases of the circulatory system Category: Surgical Plan: Advised by Cardiology to follow up yearly and will have repeat echocardiogram in the coming months. (3) Impaired glucose tolerance: Code(s): R73.02 - Impaired glucose tolerance (oral) Category: Medical Plan: Decrease the amount of carbohydrates such as pasta, bread, rice, and potatoes and limit the amount of sweets. Although fruits are generally healthy they should be eaten in moderation as they are still high in sugar. Reminded about blood work (4) Annual physical exam: Code(s): Z00.00 - Encounter for general adult medical examination without abnormal findings Category: Medical Plan: Patient is up-to-date on all recommended routine screenings and vaccinations for his age. Ordered for updated blood work and we will follow up on a yearly basis or sooner if new problems arise or pending blood work results. (5) GERD (gastroesophageal reflux disease): Code(s): K21.9 - Gastro-esophageal reflux disease without esophagitis Category: Medical Qualifiers: Esophagitis presence: without esophagitis Qualified Code(s): K21.9 - Gastro-esophageal reflux disease without esophagitis Plan: Avoid trigger foods such as citrus, tomato products, soda, caffeine, spicy foods and other foods that may be irritating to your stomach. Avoid laying flat 3-4 hours after eating and elevate the head of the bed 30 degrees to prevent acid from moving into the esophagus. Continue on omeprazole 40 mg. Patient feels symptoms are well managed at this time (6) Pulmonary valve stenosis: Comment: Echocardiogram 06/2023 normal left ventricular size EF 55-60% mild dilated left atrium [id number] mitral stenosis valve area 1.5 cm2 moderate to severe pulmonic stenosis Code(s): I37.0 - Nonrheumatic pulmonary valve stenosis Category: Medical Qualifiers: Cardiac valve disease etiology: nonrheumatic Qualified Code(s): I37.0 - Nonrheumatic pulmonary valve stenosis Plan: Seen by cardiology considered stable on current medication regimen advised by [facility] rdiology to have repeat echocardiogram and follow up in 1 year. (7) Schizophrenia: Comment: bipolar type Dr. Nico Callahan Code(s): F20.9 - Schizophrenia, unspecified Category: Medical Qualifiers: Schizophrenia type: unspecified Qualified Code(s): F20.9 - Schizophrenia, unspecified Plan: Continue to follow with psychiatrist and continue on current medication regimen. Declines the need for counselor at this time (8) Hypertension: Code(s): I10 - Essential (primary) hypertension Category: Medical Qualifiers: Hypertension type: essential hypertension Qualified Code(s): I10 - Essential (primary) hypertension Plan: Continue on current blood pressure medication. Avoid salt intake and encourage healthy diet and regular exercise. Blood pressure at goal today Plan This note was constructed using voice recognition software. While every effort has been made to ensure accuracy and animal feeder, still areas may have been included sometimes these areas may affect the content or meeting of the given symptoms. Total time spent caring for the patient today was 30 minutes. This includes time spent before the visit reviewing the chart, time spent during the visit, and time spent after the visit and documentation. Orders: Orders Comprehensive Met. Panel Today Z00.00 - Encounter for general adult medical examination without abnormal findings Complete Blood Count Auto Diff Today Z00.00 - Encounter for general adult medi elin examination without abnormal findings Hemoglobin A1c Today Z00.00 - Encounter for general adult medical examination without abnormal findings Lipid Panel Today Z00.00 - Encounter for general adult medical examination without abnormal findings Vitamin D 25-OH (D2 and D3) Today Z00.00 - Encounter for general adult medical examination without abnormal findings Free T4 (Free Thyroxine) Today Z00.00 - Encounter for general adult medical examination without abnormal findings Vitamin B12 and Folate Today Z00.00 - Encounter for general adult medical examination without abnormal findings TSH reflex Free T4 Today Z00.00 - Encounter for general adult medical examination without abnormal findings UA CC w/rflx Micro + Cult Today R35.89 - Other polyuria
[2024-01-05 11:03] VITALS: BP 106/64; PULSE 95; O2SAT 96; BMI 29.6
== END 2024-01-05 11:33 | disposition home or self-care (01) ==
LOC: HO.HMCH 11:01
PROVIDERS: PCP Internal Medicine
DX: Z00.00 Encounter for general adult medical examination without abnormal findings (principal); E66.3 Overweight; F20.9 Schizophrenia, unspecified; Z98.890 Other specified postprocedural states; Z86.79 Personal history of other diseases of the circulatory system; R73.02 Impaired glucose tolerance (oral); K21.9 Gastro-esophageal reflux disease without esophagitis; I37.0 Nonrheumatic pulmonary valve stenosis; I10 Essential (primary) hypertension

== ENCOUNTER → 2024-01-05 11:00 | Outpatient (BNVA) | payer OTHER, SELFPAY | PROVIDERS: PCP Internal Medicine | DX: Z00.00 Encounter for general adult medical examination without abnormal findings (principal); E66.3 Overweight; R73.02 Impaired glucose tolerance (oral); K21.9 Gastro-esophageal reflux disease without esophagitis; I37.0 Nonrheumatic pulmonary valve stenosis; F20.9 Schizophrenia, unspecified; I10 Essential (primary) hypertension; Z98.890 Other specified postprocedural states; Z86.79 Personal history of other diseases of the circulatory system | CPT/HCPCS: 96127; 99396 ==

== ENCOUNTER 2024-09-21 13:44 | Outpatient (AMB) | payer OTHER, SELFPAY ==
--- OUTSIDE RECORDS SUMMARY | 2024-09-21 13:47 | XMS_ITS | Encounter Summary ---
Author Organization [facility] Address [address] [place] [address] Care Team Providers Care Trimmer Sorter Name Role Phone Leann Roger DO Primary Care Provid er Encounter Details Date Type Department Care Team (Latest Contact Info) Description 06/26/2024 Lab Requisition [facility] - Main Lab [address] [place] [address] Leann Roger DO [address] [place] [address] Schizoaffective disorder, depressive type (CMS/HCC V24, CMS/HCC V28) Social History Tobacco Use Types Packs/Day Years Used Date Smoking Tobacco: Never Assessed Sex and Gender Information Value Date Recorded Sex Assigned at Not on file Legal Sex Male 12:15 AM EST Gender Identity Not on file Sexual Orientation Not on file documented as of this encounter Plan of Treatment Not on file documented as of this encounter Procedures Procedure Name Priority Date/Time Associated Diagnosis Comments CBC WITH AUTO DIFFERENTIAL Routine 06/26/2024 9:00 AM EDT Schizoaffective disorder, depressive type (CMS/HCC V24, CMS/HCC V28) CBC AND DIFFERENTIAL Routine 06/26/2024 9:00 AM EDT Schizoaffective disorder, depressive type (CMS/HCC V24, CMS/HCC V28) documented in this encounter Results * (ABNORMAL) CBC auto differential (06/26/2024 9:00 AM EDT) WBC 6.3 4.8 - 10.8 K/[facility] LAB HEMETOLOGY METHOD 06/26/2024 10:00 AM [facility] RBC 4.30(L) 4.50 - 5.50 M/mcL LAB HEMETOLOGY METHOD 06/26/2024 10:00 AM [facility] Hemoglobin 12.3(L) 13.5 - 17.5 g/dL LAB HEMETOLOGY METHOD 06/26/2024 10:00 AM [facility] LAB Hematocrit 36.3(L) 42.0 - 54.0 % LAB HEMETOLOGY METHOD 06/26/2024 10:00 AM [facility] MCV 85.0 79.0 - 98.0 FL LAB HEMETOLOGY METHOD 06/26/2024 10:00 AM [facility] MCH 28.8 27.0 - 32.0 pcg LAB HEMETOLOGY METHOD 06/26/2024 10:00 AM [facility] LAB MCHC 33.9 32.0 - 37.0 g/dL LAB HEMETOLOGY METHOD 06/26/2024 10:00 AM [facility] RDW 13.0 11.0 - 15.0 % LAB HEMETOLOGY METHOD 06/26/2024 10:00 AM [facility] Platelets 127(L) 130 - 400 K/mcL LAB HEMETOLOGY METHOD 06/26/2024 10:00 AM [facility] MPV 11.0 7.0 - 11.0 FL LAB HEMETOLOGY METHOD 06/26/2024 10:00 AM [facility] NRBC 0.0 <1.0 % LAB HEMETOLOGY METHOD 06/26/2024 10:00 AM [facility] NRBC Absolute 0.00 <0.10 K/mcL LAB HEMETOLOGY METHOD 06/26/2024 10:00 AM [facility] Neutrophils Relative 52.7 % LAB HEMETOLOGY METHOD 06/26/[facility]24 10:[facility] Lymphocytes Relative 35.7 % LAB HEMETOLOGY METHOD 06/26/2024 10:00 AM [facility] Monocytes Relative 6.5 % LAB HEMETOLOGY METHOD 06/26/2024 10:00 AM [facility] Eosinophils Relative 4.1 % LAB HEMETOLOGY METHOD 06/26/2024 10:00 AM [facility] Basophils Relative 0.5 % LAB HEMETOLOGY METHOD 06/26/2024 10:00 AM [facility] Immature Granulocytes Relative 0.5 % LAB HEMETOLOGY METHOD 06/26/2024 10:00 AM [facility] Neutrophils Absolute 3.34 1.50 - 7.00 K/mcL LAB HEMETOLOGY METHOD 06/26/2024 10:00 AM [facility] Lymphocytes Absolute 2.26 1.00 - 5.00 K/mcL LAB HEMETOLOGY METHOD 06/26/2024 10:00 AM [facility] Monocytes Absolute 0.41 0.20 - 1.00 K/mcL LAB HEMETOLOGY METHOD 06/26/2024 10:00 AM [facility] Eosinophils Absolute 0.26 0.00 - 0.50 K/mcL LAB HEMETOLOGY METHOD 06/26/2024 10:00 AM [facility] Basophils Absolute 0.03 0.00 - 0.20 K/mcL LAB HEMETOLOGY METHOD 06/26/2024 10:00 AM [facility] Immature Granulocytes Absolute 0.03 0.00 - 0.03 K/mcL LAB HEMETOLOGY METHOD 06/26/2024 10:00 AM [facility] Blood Venous blood specimen / Unknown 06/26/2024 9:00 AM EDT 06/26/2024 9:48 AM EDT us Leann Walsh DO LAB BLOOD ORDERABLES Final Result [facility] ([facility]) [facility] [address] [place] [address], documented in this encounter Visit Diagnoses Diagnosis Schizoaffective disorder, depressive type (CMS/HCC V24, CMS/HCC V28) Schizoaffective disorder, unspecified condition documented in this encounter Care Teams Trimmer Sorter Relationship Specialty Start Date End Date Leann Roger DO [address] [place] [id number] PCP - General Psychiatry 08/31/24 documented as of this encounter
--- NOTE | 2024-09-21 14:05 | MHC.PC.OV ---
Vital Signs 09/21/24 14:07 Height 5 ft 10 in Weight 194 lb 6 oz BMI 27.9 BP 150/66 H Blood Pressure Location Lt brachial Position Sitting Pulse 86 Pulse Source Pulse Oximeter Temp 97.1 F Temp Source Temporal Artery Scan Pulse Oximetry (%) 96 Oxygen Delivery Method Room Air Intake Visit Reasons: cotton stuck in ear Intake Note: Patient is here to follow up on Cotton stuck in right ear. 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 Accompanied by: Self / Same As Patient Allergies acetaminophen (From TYLENOL) Allergy (Unknown, Verified 09/21/24 14:06) UNKNOWN aspirin Allergy (Unknown, Verified 09/21/24 14:06) Unknown haloperidol (Haldol) Allergy (Unknown, Verified 09/21/24 14:06) Unknown risperidone (Risperdal) Allergy (Unknown, Verified 09/21/24 14:06) Unknown tramadol Allergy (Unknown, Verified 09/21/24 14:06) Unknown diphenhydramine (From Benadryl Allergy) Adverse Reaction (Verified 09/21/24 14:06) HTN Motrin Allergy (Unknown, Uncoded 09/21/24 14:06) Unknown Tobacco use date assessed: 09/21/24 Dental Screening Dental Screen Date: 09/21/24 Did you have a dental visit in the last 12 months?: Yes Did you have a dental problem in the last 6 months where you did not have access to dental care?: No Was dental information given to patient?: Patient has dentist [facility] Medical History Obesity (BMI 30-39.9) GERD (gastroesophageal reflux disease) Schizophrenia Surgical History H/O aortic valve repair Social History Housing: Apartment Alcohol intake: never Patient Tobacco Use Status: Former Tobacco user Tobacco use type: Cigarette Years Smoked: quit smoking 2020 e-Cigarette/Vaping Use: Never Used Second Hand Smoke Exposure: Yes Current occupational status: employed Cognitive needs: No Hearing needs: No Vision needs: No Questionnaire PHQ-9 Over the last 2 weeks, how often have you been bothered by any of the following problems? 1. Little interest or pleasure in doing things: not at all 2. Feeling down, depressed, or hopeless: not at all 3. Trouble falling or staying asleep, or sleeping too much: not at all 4. Feeling tired or having little energy: not at all 5. Poor appetite or overeating: not at all 6. Feeling bad about yourself - or that you are a failure or have let yourself or your family down: not at all 7. Trouble concentrating on things, such as reading the newspaper or watching television: not at all 8. Moving or speaking so slowly that other people could have noticed. Or the opposite - being so fidgety or restless that you have been moving around a lot more than usual: not at all 9. Thoughts that you would be better off or of hurting yourself in some way: not at all Total score: 0 Depression Screening Interpretation: Negative Depression Screening Done: Yes Source: Developed by Drs. Jag Cleary, Paris Juárez, Paulino Slater and colleagues, with an educational alysha from [employer]. Thrive Questionnaire Date Thrive assessed: 09/21/24 I am a: Patient What is your living situation today?: I have a steady place to live Within the past 12 months, did the food you bought not last and you didn't have the money to get more?: Never true Within the past 12 months, did you worry whether your food would run out before you got money to buy more?: Never true Do you have trouble paying for medicines?: No Do you have trouble getting transportation to medical appointments?: No Do you have trouble paying your heating and electricity bill?: No Do you have trouble taking care of your child, family member or friend?: No Do you have trouble with day-to-day activities such as bathing, preparing meals, shopping, managing finances, etc.?: No Are you currently unemployed and looking for a job?: No Are you interested in more education?: No Please select the resources that you would like help with: Food Currently or been in a relationship where the following occur: No concerns reported THRIVE Score: 0 AUDIT C Alcohol Use Questionnaire (AUDIT-C) 1. How often do you have a drink containing alcohol?: Never Total Score: 0 ALEXSANDER-7 AMB Questionnaire ALEXSANDER-7 Date ALEXSANDER - 7 assessed: 09/21/24 Feeling nervous, anxious, or on edge: 0 = Not at all Not being able to stop or control worryin = Not at all Worrying too much about different things: 0 = Not at all Trouble relaxin = Not at all Being so restless that it is hard to sit still: 0 = Not at all Becoming easily annoyed or irritable: 0 = Not at all Feeling afraid as if something awful might happen: 0 = Not at all Total ALEXSANDER-7 score (0-4 normal; 5-9 mild; 10-14 moderate; 15-21 severe): 0 Source: Developed by Drs. Jag Cleary, Paris Juárez, Paulino Slater and colleagues, with an educational alysha from [employer]. Physical exam (Primary Care) Vital Signs: Last Vital Signs Temp 97.1 F 09/21/24 14:07 Pulse 86 09/21/24 14:07 BP 150/66 H 09/21/24 14:07 Pulse Ox 96 09/21/24 14:07 Oxygen Delivery Method Room Air 09/21/24 14:07 BMI result Body Mass Index 27.9 Tobacco/Smoking Status: Tobacco use Status Tobacco use date assessed 09/21/24 09/21/24 14:13 Patient Tobacco Use Status Former Tobacco user 09/21/24 14:13 Tobacco use type Cigarette 09/21/24 14:13 e-Cigarette/Vaping Use Never Used 09/21/24 14:13 PHQ-9: PHQ-9 Score PHQ-9: Total score 0 09/21/24 14:28 Depression Screening Interpretation: Negative Thrive Assessment: Date of Thrive Assessment Date Thrive assessed 09/21/24 09/21/24 14:13 Currently or been in a relationship where the following occur: No concerns reported Who was present: foreign body in R ear cotton Q tip Const General: alert; No acute distress Eyes Conjunctivae: conjunctivae normal Resp Auscultation: clear to auscultation bilaterally Cardio Rate: regular rate Rhythm: regular rhythm GI Inspection: Yes normal to inspection Extrem General: Yes normal to inspection and No edema Office Procedures Cerumen Removal From which ear canal was the cerumen removed: right Removal: irrigation, otoscope w/curette, cerumen loop/spoon and other Notes: patient tolerated procedure well, no complications and ear canal clear 55221-Tpx Irrigation/Lavage Coding Level of Care Code Est Pt Level 3 (36183) Diagnoses Foreign body of ear, right T16.1XXA CPT Codes Office Procedure - CPT: 55458-Cjl Irrigation/Lavage ([id number]) Assessment & Plan Assessment & Plan (1) Foreign body of ear, right: Code(s): T16.1XXA - Foreign body in right ear, initial encounter Category: Medical Plan: extraction by ear irrigation - done TM intact Plan History of Present Illness The patient is a 44-year-old male presenting with an acute problem related to a foreign body in the ear. The patient has a history of schizophrenia, hypertension, and gastroesophageal reflux disease (GERD). He also has a history of aortic valve repair performed in 2018. The patient reported that a Q-tip was stuck in his ear, which occurred two days prior to the visit. The Q-tip was removed during the visit. Health Maintenance - Social History Review of Systems Physical Exam - Ear: Foreign body (Q-tip) removed from ear canal Results Plan The patient presented with a foreign body in the ear, specifically a Q-tip, which was successfully removed during the visit. Patient was informed and verbally consented to the use of an ambient scribe for clinic note documentation during this visit. Discussion Notes I discussed the removal of the Q-tip from the patient's ear and ensured the patient was comfortable post-procedure. Patient Instructions - Monitor the ear for any signs of infection, such as pain or discharge, and return if symptoms occur. -
[2024-09-21 14:07] VITALS: BP 150/66; PULSE 86; TEMP 36.2; O2SAT 96; BMI 27.9
== END 2024-09-21 14:42 | disposition home or self-care (01) ==
LOC: HO.HMCH 13:45
PROVIDERS: PCP Internal Medicine; Visit Provider Internal Medicine
DX: T16.1XXA Foreign body in right ear, initial encounter (principal)

== ENCOUNTER → 2024-09-21 13:44 | Outpatient (BNVA) | payer OTHER, SELFPAY | PROVIDERS: PCP Internal Medicine; Visit Provider Internal Medicine | DX: T16.1XXA Foreign body in right ear, initial encounter (principal); X58.XXXA Exposure to other specified factors, initial encounter; Y93.9 Activity, unspecified; Y92.9 Unspecified place or not applicable; Y99.9 Unspecified external cause status | CPT/HCPCS: 69200; 99212 ==

== ENCOUNTER 2025-01-07 11:02 | Outpatient (AMB) | payer OTHER, SELFPAY ==
--- NOTE | 2025-01-07 11:03 | A.OFFPC_ITS ---
Vital Signs 01/07/25 11:04 Height 5 ft 10 in Weight 207 lb 2 oz BMI 29.7 BP 110/62 Blood Pressure Location Lt brachial Position Sitting Pulse 89 Pulse Source Pulse Oximeter Temp 97.3 F Temp Source Temporal Artery Scan Pulse Oximetry (%) 98 Oxygen Delivery Method Room Air Intake Visit Reasons: pe Intake Note: Patient is here to follow up on Cotton stuck in right ear. 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 Investment Specialist: Not Required per policy Accompanied by: Self / Same As Patient Allergies acetaminophen (From TYLENOL) Allergy (Unknown, Verified 01/07/25 11:19) UNKNOWN aspirin Allergy (Unknown, Verified 01/07/25 11:19) Unknown haloperidol (Haldol) Allergy (Unknown, Verified 01/07/25 11:19) Unknown risperidone (Risperdal) Allergy (Unknown, Verified 01/07/25 11:19) Unknown tramadol Allergy (Unknown, Verified 01/07/25 11:19) Unknown diphenhydramine (From Benadryl Allergy) Adverse Reaction (Verified 01/07/25 11:19) HTN Motrin Allergy (Unknown, Uncoded 01/07/25 11:19) Unknown Medication List - Last Reconciled 01/07/25 by Brooklynn Irby PA-C amoxicillin 2,000 mg PO 1 hour before the procedure; 1 day aripiprazole (Abilify) PO bedtime; benztropine 1 mg QD clozapine 200 mg PO BEDTIME clozapine 100 mg QD 200 mg QHS, 25 mg QHS PO; clozapine 25 mg PO BEDTIME divalproex ER 500 mg PO DAILY divalproex ER 250 mg PO DAILY lisinopril 10 mg PO DAILY loratadine 10 mg PO DAILY mirtazapine 7.5 mg PO BEDTIME nicotine 1 patch transdermal DAILY nicotine (polacrilex) 2 mg buccal Q2H omeprazole 40 mg PO DAILY 90 days polymyxin B sulf-trimethoprim 10,000 unit- 1 mg/mL (Polytrim) 1 drp ophthalmic-R ight Q3H 7 days propranolol 30 mg (1.5 x 20 mg) PO BID Tobacco use date assessed: 09/21/24 Dental Screening Dental Screen Date: 01/07/25 Did you have a dental visit in the last 12 months?: Yes Did you have a dental problem in the last 6 months where you did not have access to dental care?: No Was dental information given to patient?: Patient has dentist HPI pe HPI Details 44-year-old male with past medical histo ry of schizophrenia, impaired glucose tolerance, GERD, aortic valve repair, hypertension last seen 08/2024 coming in for annual exam. In review of the notes, patient was seen by [facility] Cardiology 10/2024 echocardiogram unchanged since previous visit no changes were made and plan to follow up in 1 year. Presenting for an annual visit and review of recent lab work. He continues to follow with cardiology and reports no recent medication changes from his bond underwriter. He has been under the care of his psychiatrist, Dr. Leann Callahan. The patient continues to feel well without a therapist. colon cancer screening: Cologuard ordered vaccines: MTD [facility] Medical History Obesity (BMI 30-39.9) GERD (gastroesophageal reflux disease) Schizophrenia Surgical History H/O aortic valve repair Social History Housing: Apartment Alcohol intake: never Patient Tobacco Use Status: Former Tobacco user Tobacco use type: Cigarette Years Smoked: quit smoking 2020 e-Cigarette/Vaping Use: Never Used Second Hand Smoke Exposure: Yes Current occupational status: employed Cognitive needs: No Hearing needs: No Vision needs: No Questionnaire PHQ-9 Over the last 2 weeks, how often have you been bothered by any of the following problems? 1. Little interest or pleasure in doing things: not at all 2. Feeling down, depressed, or hopeless: not at all 3. Trouble falling or staying asleep, or sleeping too much: not at all 4. Feeling tired or having little energy: not at all 5. Poor appetite or overeating: not at all 6. Feeling bad about yourself - or that you are a failure or have let yourself or your family down: not at all 7. Trouble concentrating on things, such as reading the newspaper or watching television: not at all 8. Moving or speaking so slowly that other people could have noticed. Or the opposite - being so fidgety or restless that you have been moving around a lot more than usual: not at all 9. Thoughts that you would be better off or of hurting yourself in some way: not at all Total score: 0 Depression Screening Interpretation: Negative Depression Screening Done: Yes Source: Developed by Drs. Jag Cleary, Paris Juárez, Paulino Slater and colleagues, with an educational alysha from [employer]. Thrive Questionnaire Date Thrive assessed: 09/21/24 I am a: Patient What is your living situation today?: I have a steady place to live Within the past 12 months, did the food you bought not last and you didn't have the money to get more?: Never true Within the past 12 months, did you worry whether your food would run out before you got money to buy more?: Never true Do you have trouble paying for medicines?: No Do you have trouble getting transportation to medical appointments?: No Do you have trouble paying your heating and electricity bill?: No Do you have trouble taking care of your child, family member or friend?: No Do you have trouble with day-to-day activities such as bathing, preparing meals, shopping, managing finances, etc.?: No Are you currently unemployed and looking for a job?: No Are you interested in more education?: No Please select the resources that you would like help with: Food Currently or been in a relationship where the following occur: No concerns r eported THRIVE Score: 0 AUDIT C Alcohol Use Questionnaire (AUDIT-C) 1. How often do you have a drink containing alcohol?: Never Total Score: 0 ALEXSANDER-7 AMB Questionnaire ALEXSANDER-7 Date ALEXSANDER - 7 assessed: 09/21/24 Feeling nervous, anxious, or on edge: 0 = Not at all Not being able to stop or control worryin = Not at all Worrying too much about different things: 0 = Not at all Trouble relaxin = Not at all Being so restless that it is hard to sit still: 0 = Not at all Becoming easily annoyed or irritable: 0 = Not at all Feeling afraid as if something awful might happen: 0 = Not at all Total ALEXSANDER-7 score (0-4 normal; 5-9 mild; 10-14 moderate; 15-21 severe): 0 Source: Developed by Saul Sesayet B.W. Franck, Paulino Slater and colleagues, with an educational alysha from [employer]. ALEXSANDER-7 Assessment Billing ALEXSANDER-7 Assessment Tool: ALEXSANDER-7 Assessment 05166 Review of Systems Const Denies body aches, Denies chills, Denies fever(s), Denies headache(s) and Denies poor appetite Eyes Reports no additional complaints ENT Denies dysphagia, Denies dizziness, Denies headache(s) and Denies odynophagia Card Denies chest pain, Denies syncope, Denies edema, Denies irregular heart rhythm, Denies lightheadedness and Denies dyspnea Resp Denies cough and Denies dyspnea GI Denies abdominal pain, Denies constipation, Denies dysphagia, Denies diarrhea, Denies nausea, Denies odynophagia and Denies vomiting Reports no additional complaints Musc Reports no additional complaints and Denies abnormal gait Skin/Breast Reports system reviewed and no additional complaints, except as documented Neuro Denies abnormal gait, Denies dizziness, Denies syncope and Denies headache(s) Psych Reports no additional complaints Physical exam (Primary Care) Vital Signs: Last Vital Signs Temp 97.3 F 01/07/25 11:04 Pulse 89 01/07/25 11:04 BP 110/62 01/07/25 11:04 Pulse Ox 98 01/07/25 11:04 Oxygen Delivery Method Room Air 01/07/25 11:04 BMI result Body Mass Index 29.7 Tobacco/Smoking Status: Tobacco use Status Tobacco use date assessed 09/21/24 01/07/25 11:05 Patient Tobacco Use Status Former Tobacco user 01/07/25 11:05 Tobacco use type Cigarette 01/07/25 11:05 e-Cigarette/Vaping Use Never Used 01/07/25 11:05 PHQ-9: PHQ-9 Score PHQ-9: Total score 0 01/07/25 11:32 Depression Screening Interpretation: Negative Thrive Assessment: Date of Thrive Assessment Date Thrive assessed 09/21/24 01/07/25 11:05 Currently or been in a relationship where the following occur: No concerns reported Const General: cooperative, healthy appearing, comfortable and no acute distress Orientation/consciousness: patient oriented x3 HENMT Head: Yes normocephalic Ears: hearing grossly normal bilaterally General nose exam: Normal external nose present Face and sinus: Yes normal facial exam and Yes sinuses nontender Mouth: Normal oral and palatal mucosa present and tongue normal Throat: Yes posterior oropharynx normal Eyes General: appearance normal, both eyes and all related structures Conjunctivae: conjunctivae normal Pupils: Equal, round and reactive pupils present EOM: EOMs intact bilaterally and No Nystagmus present Neck Neck: Yes full ROM and Yes no lymphadenopathy Chest Chest palpation & inspection: normal inspection of the chest Resp Effort & Inspection: normal respiratory effort Auscultation: clear to auscultation bilaterally, no crackles, no rales, no rhonchi and no wheezes Cardio Rate: regular rate Rhythm: regular rhythm Peripheral pulses: radial pulses present and dorsalis pedis present GI Inspection: Yes normal to inspection and No Abdominal wall edema Palpation (GI): Soft to palpation, not firm and nontender Auscultation: normal bowel sounds Rectal Exam - Male: Yes deferred General: Yes no CVA tenderness Back/Spine/Pelvis Back: no CVA tenderness Skin General skin exam: no rashes or lesions noted Neuro General: patient oriented x3 Cranial nerves: Yes Equal, round and reactive pupils present, Yes Midline tongue present, Yes Ability to bilaterally elevate shoulders present and No Nystagmus present Gait exam (Neuro): Normal gait present Extrem General: Yes normal to inspection, Yes full ROM and No edema Psych Speech and movement: Normal speech and movement present Affect: normal affect Attitude: cooperative Insight: Good insight present (Psych) Judgement: Good judgement present (Psych) Coding Level of Care Code Est Pt Prev Care 40-64y(15301) Diagnoses Annual physical exam Z00.00 Overweight (BMI 25.0-29.9) E66.3 H/O aortic valve repair Z98.890; Z86.79 Impaired glucose tolerance R73.02 Gastroesophageal reflux disease without esophagitis K21.9 Esophagitis presence: without esophagitis 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 Cardiac valve disease etiology: nonrheumatic Schizophrenia, unspecified type F20.9 Schizophrenia type: unspecified Essential hypertension I10 Hypertension type: essential hypertension Hypercholesteremia E78.00 Pre-diabetes R73.03 Additional Codes ALEXSANDER-7 Assessment Billing - ALEXSANDER-7 Assessment Tool: ALEXSANDER-7 Assessment 10747 ([id number]) Assessment & Plan Assessment & Plan (1) Annual physical exam: Code(s): Z00.00 - Encounter for general adult medical examination without abnormal findings Category: Medical Plan: Patient is up-to-date on all recommended routine screenings and vaccinations for his age. Ordered for updated blood work and we will follow up on a yearly basis or sooner if new problems arise or pending blood work results. He will be due for colorectal cancer screening in April and referral was placed for [facility]. (2) Overweight (BMI 25.0-29.9): Code(s): E66.3 - Overweight Category: Medical Plan: Healthy diet and regular exercise is encouraged. 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 Cabral adult congenital heart disease fellow no surgery recommend May 2021 Echocardiogram 06/2023 normal left ventricular size EF 55-60% mild dilated left atrium [id number] mitral stenosis valve area 1.5 cm2 moderate to severe pulmonic stenosis Code(s): Z98.890 - Other specified postprocedural states; Z86.79 - Personal history of other diseases of the circulatory system Category: Surgical Plan: Advised by Cardiology to follow up yearly and will have repeat echocardiogram in the coming months. (4) Impaired glucose tolerance: Code(s): R73.02 - Impaired glucose tolerance (oral) Category: Medical Plan: Decrease the amount of carbohydrates such as pasta, bread, rice, and potatoes and limit the amount of sweets. Although fruits are generally healthy they should be eaten in moderation as they are still high in sugar. Last A1c 5.8% given information today. (5) GERD (gastroesophageal reflux disease): Code(s): K21.9 - Gastro-esophageal reflux disease without esophagitis Category: Medical Qualifiers: Esophagitis presence: without esophagitis Qualified Code(s): K21.9 - Gastro-esophageal reflux disease without esophagitis Plan: Avoid trigger foods such as citrus, tomato products, soda, caffeine, spicy foods and other foods that may be irritating to your stomach. Avoid laying flat 3-4 hours after eating and elevate the head of the bed 30 degrees to prevent acid from moving into the esophagus. Continue on omeprazole 40 mg. Patient feels symptoms are well managed at this time (6) Pulmonary valve stenosis: Comment: Echocardiogram 06/2023 normal left ventricular size EF 55-60% mild dilated left atrium aduv-yf-vjautpzo mitral stenosis valve area 1.5 cm2 moderate to severe pulmonic stenosis Code(s): I37.0 - Nonrheumatic pulmonary valve stenosis Category: Medical Qualifiers: Cardiac valve disease etiology: nonrheumatic Qualified Code(s): I37.0 - Nonrheumatic pulmonary valve stenosis Plan: Seen by cardiology considered stable on current medication regimen advised by Cardiology to have repeat echocardiogram and follow up in 1 year. (7) Schizophrenia: Comment: bipolar type Dr. Leann Callahan Code(s): F20.9 - Schizophrenia, unspecified Category: Medical Qualifiers: Schizophrenia type: unspecified Qualified Code(s): F20.9 - Schizophrenia, unspecified Plan: Continue to follow with psychiatrist and continue on current medication regimen. Declines the need for counselor at this time (8) Hypertension: Code(s): I10 - Essential (primary) hypertension Category: Medical Qualifiers: Hypertension type: essential hypertension Qualified Code(s): I10 - Essential (primary) hypertension Plan: Continue on current blood pressure medication. Avoid salt intake and encourage healthy diet and regular exercise. Blood pressure at goal today (9) Hypercholesteremia: Comment: 11/2024 LDL 112 Code(s): E78.00 - Pure hypercholesterolemia, unspecified Category: Medical Plan: Avoid foods that are high in cholesterol such as red meat, fried foods, eggs and baked goods. Triglyceride goal of less than 150 and LDL goal of less than 130. Discussed dietary and lifestyle modification and patient was given handout today (10) Pre-diabetes: Comment: 11/2024 5.8% Code(s): R73.03 - Prediabetes Category: Medical Plan: Decrease the amount of carbohydrates such as pasta, bread, rice, and potatoes and limit the amount of sweets. Although fruits are generally healthy they should be eaten in moderation as they are still high in sugar. Information given today Plan This note was constructed using voice recognition software. While every effort has been made to ensure accuracy and stretch box tender, still areas may have been included sometimes these areas may affect the content or meeting of the given symptoms. Total time spent caring for the patient today was 30 minutes. This includes time spent before the visit reviewing the chart, time spent during the visit, and time spent after the visit and documentation. Patient was informed and verbally consented to the use of an ambient scribe for clinic note documentation during this visit. Orders: Referrals Cologuard Test Z12.11 - Encounter for screening for malignant neoplasm of colon, Z12.12 - Encounter for screening for malignant neoplasm of rectum
[2025-01-07 11:04] VITALS: BP 110/62; PULSE 89; TEMP 36.3; O2SAT 98; BMI 29.7
--- OUTSIDE RECORDS SUMMARY | 2025-01-07 13:22 | XMS_ITS | Encounter Summary ---
Author Organization [facility] Address [address] [place] [address] Care Team Providers Care Teacher Drama Name Role Phone Leann Roger DO Primary Care Provid er Encounter Details Date Type Department Care Team (Latest Contact Info) Description 07/26/2024 Lab Requisition [facility] - Main Lab [address] [place] [address] Leann Roger DO [address] [place] [address] Schizoaffective disorder, depressive type (CMS/HCC V24, CMS/HCC [...] Diagnosis Comments CBC WITH AUTO DIFFERENTIAL Routine 07/26/2024 8:20 AM EDT Schizoaffective disorder, depressive type (CMS/HCC V24, CMS/HCC V28) CBC AND DIFFERENTIAL Routine 07/26/2024 8:20 AM EDT Schizoaffective disorder, depressive type (CMS/HCC V24, CMS/HCC V28) documented in this encounter Results * (ABNORMAL) CBC auto differential (07/26/2024 8:20 AM EDT) WBC 6.5 4.8 - 10.8 K/[facility] LAB HEMETOLOGY METHOD 07/26/2024 9:09 AM EDT [facility] LAB RBC 4.40(L) 4.50 - 5.50 M/mcL LAB HEMETOLOGY METHOD 07/26/2024 9:09 AM [facility] LAB Hemoglobin 12.4(L) 13.5 - 17.5 g/dL LAB HEMETOLOGY METHOD 07/26/2024 9:09 AM [facility] LAB Hematocrit 37.5(L) 42.0 - 54.0 % LAB HEMETOLOGY METHOD 07/26/2024 9:09 AM [facility] LAB MCV 85.2 79.0 - 98.0 FL LAB HEMETOLOGY METHOD 07/26/2024 9:09 AM [facility] LAB MCH 28.2 27.0 - 32.0 pcg LAB HEMETOLOGY METHOD 07/26/2024 9:09 AM [facility] LAB MCHC 33.1 32.0 - 37.0 g/dL LAB HEMETOLOGY METHOD 07/26/2024 9:09 AM [facility] LAB RDW 12.8 11.0 - 15.0 % LAB HEMETOLOGY METHOD 07/26/2024 9:09 AM [facility] LAB Platelets 165 130 - 400 K/mcL LAB HEMETOLOGY METHOD 07/26/2024 9:09 AM [facility] LAB MPV 10.4 7.0 - 11.0 FL LAB HEMETOLOGY METHOD 07/26/2024 9:09 AM [facility] LAB NRBC 0.0 <1.0 % LAB HEMETOLOGY METHOD 07/26/2024 9:09 AM [facility] LAB NRBC Absolute 0.00 <0.10 K/mcL LAB HEMETOLOGY METHOD 07/26/2024 9:09 AM [facility] LAB Neutrophils Relative 55.0 % LAB HEMETOLOGY METHOD 07/26/2024 9:09 AM [facility] LAB Lymphocytes Relative 34.3 % LAB HEMETOLOGY METHOD 07/26/2024 9:09 AM [facility] LAB Monocytes Relative 6.7 % LAB HEMETOLOGY METHOD 07/26/2024 9:09 AM [facility] LAB Eosinophils Relative 3.2 % LAB HEMETOLOGY METHOD 07/26/2024 9:09 AM [facility] LAB Basophils Relative 0.2 % LAB HEMETOLOGY METHOD 07/26/2024 9:09 AM [facility] LAB Immature Granulocytes Relative 0.6 % LAB HEMETOLOGY METHOD 07/26/2024 9:09 AM [facility] LAB Neutrophils Absolute 3.60 1.50 - 7.00 K/mcL LAB HEMETOLOGY METHOD 07/26/2024 9:09 AM [facility] LAB Lymphocytes Absolute 2.24 1.00 - 5.00 K/mcL LAB HEMETOLOGY METHOD 07/26/2024 9:09 AM [facility] LAB Monocytes Absolute 0.44 0.20 - 1.00 K/mcL LAB HEMETOLOGY METHOD 07/26/2024 9:09 AM [facility] LAB Eosinophils Absolute 0.21 0.00 - 0.50 K/mcL LAB HEMETOLOGY METHOD 07/26/2024 9:09 AM [facility] LAB Basophils Absolute 0.01 0.00 - 0.20 K/mcL LAB HEMETOLOGY METHOD 07/26/2024 9:09 AM [facility] LAB Immature Granulocytes Absolute 0.04(H) 0.00 - 0.03 K/mcL LAB HEMETOLOGY METHOD 07/26/2024 9:09 AM [facility] LAB Blood Venous blood specimen / Unknown 07/26/2024 8:20 AM EDT 07/26/2024 8:51 AM EDT us Leann Walsh DO LAB BLOOD ORDERABLES Final Result [facility] LAB [address] [place] [address], documented in this encounter Visit Diagnoses Diagnosis Schizoaffective disorder, depressive type (CMS/HCC V24, CMS/HCC V28) Schizoaffective disorder, unspecified condition documented in this encounter Care Teams Teacher Drama Relationship Specialty Start Date End Date Leann Roger DO [address] [place] [id number] PCP - General Psychiatry 08/31/24 documented as of this encounter
--- OUTSIDE RECORDS SUMMARY | 2025-01-07 13:22 | XMS_ITS | Encounter Summary ---
Author Organization [facility] Address [address] [place] [address] Care Team Providers Care Roof Designer Name Role Phone Leann Roger DO Primary Care Provid er Encounter Details Date Type Department Care Team (Latest Contact Info) Description 06/26/[address] [facility] - Main Lab [address] [place] [address] Leann Roger DO [address] [place] [address] Schizoaffective disorder, depressive type (CMS/HCC V24, CMS/HCC [...] AM EDT) WBC 6.3 4.8 - 10.8 K/[facility] LAB HEMETOLOGY METHOD 06/26/2024 10:00 AM EDT [facility] LAB RBC 4.30(L) 4.50 - 5.50 M/mcL LAB HEMETOLOGY METHOD 06/26/2024 10:00 AM [facility] LAB Hemoglobin 12.3(L) 13.5 - 17.5 g/dL LAB HEMETOLOGY METHOD 06/26/2024 10:00 AM [facility] LAB Hematocrit 36.3(L) 42.0 - 54.0 % LAB HEMETOLOGY METHOD 06/26/2024 10:00 AM [facility] LAB MCV 85.0 79.0 - 98.0 FL LAB HEMETOLOGY METHOD 06/26/2024 10:00 AM [facility] LAB MCH 28.8 27.0 - 32.0 pcg LAB HEMETOLOGY METHOD 06/26/2024 10:00 AM [facility] LAB MCHC 33.9 32.0 - 37.0 g/dL LAB HEMETOLOGY METHOD 06/26/2024 10:00 AM [facility] LAB RDW 13.0 11.0 - 15.0 % LAB HEMETOLOGY METHOD 06/26/2024 10:00 AM [facility] LAB Platelets 127(L) 130 - 400 K/mcL LAB HEMETOLOGY METHOD 06/26/2024 10:00 AM [facility] LAB MPV 11.0 7.0 - 11.0 FL LAB HEMETOLOGY METHOD 06/26/2024 10:00 AM [facility] LAB NRBC 0.0 <1.0 % LAB HEMETOLOGY METHOD 06/26/2024 10:00 AM [facility] LAB NRBC Absolute 0.00 <0.10 K/mcL LAB HEMETOLOGY METHOD 06/26/2024 10:00 AM [facility] LAB Neutrophils Relative 52.7 % LAB HEMETOLOGY METHOD 06/[facility]24 [facility] Lymphocytes Relative 35.7 % LAB HEMETOLOGY METHOD 06/26/2024 10:00 AM [facility] LAB Monocytes Relative 6.5 % LAB HEMETOLOGY METHOD 06/26/2024 10:00 AM [facility] LAB Eosinophils Relative 4.1 % LAB HEMETOLOGY METHOD 06/26/2024 10:00 AM [facility] LAB Basophils Relative 0.5 % LAB HEMETOLOGY METHOD 06/26/2024 10:00 AM [facility] LAB Immature Granulocytes Relative 0.5 % LAB HEMETOLOGY METHOD 06/26/2024 10:00 AM [facility] LAB Neutrophils Absolute 3.34 1.50 - 7.00 K/mcL LAB HEMETOLOGY METHOD 06/26/2024 10:00 AM [facility] LAB Lymphocytes Absolute 2.26 1.00 - 5.00 K/mcL LAB HEMETOLOGY METHOD 06/26/2024 10:00 AM [facility] LAB Monocytes Absolute 0.41 0.20 - 1.00 K/mcL LAB HEMETOLOGY METHOD 06/26/2024 10:00 AM [facility] LAB Eosinophils Absolute 0.26 0.00 - 0.50 K/mcL LAB HEMETOLOGY METHOD 06/26/2024 10:00 AM [facility] LAB Basophils Absolute 0.03 0.00 - 0.20 K/mcL LAB HEMETOLOGY METHOD 06/26/2024 10:00 AM [facility] LAB Immature Granulocytes Absolute 0.03 0.00 - 0.03 K/mcL LAB HEMETOLOGY METHOD 06/26/2024 10:00 AM [facility] LAB Blood Venous blood specimen / Unknown 06/26/2024 9:00 AM EDT 06/26/2024 9:48 AM EDT us Leann Walsh DO LAB BLOOD ORDERABLES Final Result [facility] ([facility]) [facility] LAB [address] [place] [address], documented in this encounter Visit Diagnoses Diagnosis Schizoaffective disorder, depressive type (CMS/HCC V24, CMS/HCC V28) Schizoaffective disorder, unspecified condition documented in this encounter Care Teams Roof Designer Relationship Specialty Start Date End Date Leann Roger DO [address] [place] [id number] PCP - General Psychiatry 08/31/24 documented as of this encounter
--- OUTSIDE RECORDS SUMMARY | 2025-01-07 13:22 | XMS_ITS | Encounter Summary ---
Author Organization [facility] Address [address] [place] [address] Care Team Providers Care Logging Equipment Mechanic Name Role Phone Leann Roger DO Primary Care Provid er Encounter Details Date Type Department Care Team (Latest Contact Info) Description 08/31/2024 Lab Requisition [facility] - Main Lab [address] [place] [address] Leann Roger DO [address] [place] [address] Schizoaffective disorder, depressive type (CMS/HCC V24, CMS/HCC [...] Diagnosis Comments CBC WITH AUTO DIFFERENTIAL Routine 08/31/2024 9:05 AM EDT Schizoaffective disorder, depressive type (CMS/HCC V24, CMS/HCC V28) CBC AND DIFFERENTIAL Routine 08/31/2024 9:05 AM EDT Schizoaffective disorder, depressive type (CMS/HCC V24, CMS/HCC V28) documented in this encounter Results * (ABNORMAL) CBC auto differential (08/31/2024 9:05 AM EDT) WBC 7.5 4.8 - 10.8 K/[facility] LAB HEMETOLOGY METHOD 08/31/2024 9:22 AM EDT [facility] LAB RBC 4.40(L) 4.50 - 5.50 M/mcL LAB HEMETOLOGY METHOD 08/31/2024 9:22 AM [facility] LAB Hemoglobin 12.4(L) 13.5 - 17.5 g/dL LAB HEMETOLOGY METHOD 08/31/2024 9:22 AM [facility] LAB Hematocrit 37.2(L) 42.0 - 54.0 % LAB HEMETOLOGY METHOD 08/31/2024 9:22 AM [facility] LAB MCV 84.7 79.0 - 98.0 FL LAB HEMETOLOGY METHOD 08/31/2024 9:22 AM [facility] LAB MCH 28.2 27.0 - 32.0 pcg LAB HEMETOLOGY METHOD 08/31/2024 9:22 AM [facility] LAB MCHC 33.3 32.0 - 37.0 g/dL LAB HEMETOLOGY METHOD 08/31/2024 9:22 AM [facility] LAB RDW 13.0 11.0 - 15.0 % LAB HEMETOLOGY METHOD 08/31/2024 9:22 AM [facility] LAB Platelets 150 130 - 400 K/mcL LAB HEMETOLOGY METHOD 08/31/2024 9:22 AM [facility] LAB MPV 10.9 7.0 - 11.0 FL LAB HEMETOLOGY METHOD 08/31/2024 9:22 AM [facility] LAB NRBC 0.0 <1.0 % LAB HEMETOLOGY METHOD 08/31/2024 9:22 AM [facility] LAB NRBC Absolute 0.00 <0.10 K/mcL LAB HEMETOLOGY METHOD 08/31/2024 9:22 AM [facility] LAB Neutrophils Relative 54.4 % LAB HEMETOLOGY METHOD 08/31/2024 9:22 AM [facility] LAB Lymphocytes Relative 35.0 % LAB HEMETOLOGY METHOD 08/31/2024 9:22 AM [facility] LAB Monocytes Relative 5.4 % LAB HEMETOLOGY METHOD 08/31/2024 9:22 AM [facility] LAB Eosinophils Relative 4.5 % LAB HEMETOLOGY METHOD 08/31/2024 9:22 AM [facility] LAB Basophils Relative 0.4 % LAB HEMETOLOGY METHOD 08/31/2024 9:22 AM [facility] LAB Immature Granulocytes Relative 0.3 % LAB HEMETOLOGY METHOD 08/31/2024 9:22 AM [facility] LAB Neutrophils Absolute 4.10 1.50 - 7.00 K/mcL LAB HEMETOLOGY METHOD 08/31/2024 9:22 AM [facility] LAB Lymphocytes Absolute 2.64 1.00 - 5.00 K/mcL LAB HEMETOLOGY METHOD 08/31/2024 9:22 AM [facility] LAB Monocytes Absolute 0.41 0.20 - 1.00 K/mcL LAB HEMETOLOGY METHOD 08/31/2024 9:22 AM [facility] LAB Eosinophils Absolute 0.34 0.00 - 0.50 K/mcL LAB HEMETOLOGY METHOD 08/31/2024 9:22 AM [facility] LAB Basophils Absolute 0.03 0.00 - 0.20 K/mcL LAB HEMETOLOGY METHOD 08/31/2024 9:22 AM [facility] LAB Immature Granulocytes Absolute 0.02 0.00 - 0.03 K/mcL LAB HEMETOLOGY METHOD 08/31/2024 9:22 AM [facility] LAB Blood Venous blood specimen / Unknown 08/31/2024 9:05 AM EDT 08/31/2024 9:15 AM EDT us Leann Walsh DO LAB BLOOD ORDERABLES Final Result [facility]) [facility] LAB [address] [place] [address], documented in this encounter Visit Diagnoses Diagnosis Schizoaffective disorder, depressive type (CMS/HCC V24, CMS/HCC V28) Schizoaffective disorder, unspecified condition documented in this encounter Care Teams Logging Equipment Mechanic Relationship Specialty Start Date End Date Leann Roger DO [address] [place] [id number] PCP - General Psychiatry 08/31/24 documented as of this encounter
--- OUTSIDE RECORDS SUMMARY | 2025-01-07 13:22 | XMS_ITS | Encounter Summary ---
Author Organization [facility] Address [address] [place] [address] Care Team Providers Care Emergency Veterinary Assistant Name Role Phone Leann Roger DO Primary Care Provid er Encounter Details Date Type Department Care Team (Latest Contact Info) Description 03/01/2024 Lab Requisition [facility] - Main Lab [address] [facility] [place] [address] Leann Roger DO [address] [place] [address] Presence of prosthetic heart valve; Nonalcoholic steatohepatitis (JOSE); Personal history of traumatic brain injury; Schizoaffective disorder, bipolar type (CMS/HCC V24, CMS/HCC V28) Social History [...] Diagnosis Comments CBC WITH AUTO DIFFERENTIAL Routine 03/01/2024 8:20 AM EST Presence of prosthetic heart valve Nonalcoholic steatohepatitis (JOSE) Personal history of traumatic brain injury Schizoaffective disorder, bipolar type (CMS/HCC) CBC AND DIFFERENTIAL Routine 03/01/2024 8:20 AM EST Presence of prosthetic heart valve Nonalcoholic steatohepatitis (JOSE) Personal history of traumatic brain injury Schizoaffective disorder, bipolar type (CMS/HCC) documented in this encounter Results * (ABNORMAL) CBC auto differential (03/01/2024 8:20 AM EST) WBC 6.9 4.8 - 10.8 K/mcL LAB HEMETOLOGY METHOD 03/01/2024 9:14 AM [facility] LAB RBC 4.60 4.50 - 5.50 M/mcL LAB HEMETOLOGY METHOD 03/01/2024 9:14 AM [facility] LAB Hemoglobin 13.2(L) 13.5 - 17.5 g/dL LAB HEMETOLOGY METHOD 03/01/2024 9:14 AM [facility] LAB Hematocrit 39.9(L) 42.0 - 54.0 % LAB HEMETOLOGY METHOD 03/01/2024 9:14 AM [facility] LAB MCV 86.0 79.0 - 98.0 FL LAB HEMETOLOGY METHOD 03/01/2024 9:14 AM [facility] LAB MCH 28.4 27.0 - 32.0 pcg LAB HEMETOLOGY METHOD 03/01/2024 9:14 AM [facility] LAB MCHC 33.1 32.0 - 37.0 g/dL LAB HEMETOLOGY METHOD 03/01/2024 9:14 AM [facility] LAB RDW 12.8 11.0 - 15.0 % LAB HEMETOLOGY METHOD 03/01/2024 9:14 AM [facility] LAB Platelets 153 130 - 400 K/[facility] LAB HEMETOLOGY METHOD 03/01/2024 9:14 AM [facility] LAB MPV 11.4(H) 7.0 - 11.0 FL LAB HEMETOLOGY METHOD 03/01/2024 9:14 AM [facility] LAB NRBC 0.0 <1.0 % LAB HEMETOLOGY METHOD 03/01/2024 9:14 AM [facility] LAB NRBC Absolute 0.00 <0.10 K/[facility] LAB HEMETOLOGY METHOD 03/01/2024 9:14 AM [facility] LAB Neutrophils Relative 56.0 % LAB HEMETOLOGY METHOD 03/01/2024 9:14 AM [facility] LAB Lymphocytes Relative 34.3 % LAB HEMETOLOGY METHOD 03/01/2024 9:14 AM [facility] LAB Monocytes Relative 5.7 % LAB HEMETOLOGY METHOD 03/01/2024 9:14 AM [facility] LAB Eosinophils Relative 3.6 % LAB HEMETOLOGY METHOD 03/01/2024 9:14 AM [facility] LAB Basophils Relative 0.1 % LAB HEMETOLOGY METHOD 03/01/2024 9:14 AM [facility] LAB Immature Granulocytes Relative 0.3 % LAB HEMETOLOGY METHOD 03/01/2024 9:14 AM [facility] LAB Neutrophils Absolute 3.86 1.50 - 7.00 K/mcL LAB HEMETOLOGY METHOD 03/01/2024 9:14 AM [facility] LAB Lymphocytes Absolute 2.36 1.00 - 5.00 K/mcL LAB HEMETOLOGY METHOD 03/01/2024 9:14 AM [facility] LAB Monocytes Absolute 0.39 0.20 - 1.00 K/mcL LAB HEMETOLOGY METHOD 03/01/2024 9:14 AM [facility] LAB Eosinophils Absolute 0.25 0.00 - 0.50 K/mcL LAB HEMETOLOGY METHOD 03/01/2024 9:14 AM [facility] LAB Basophils Absolute 0.01 0.00 - 0.20 K/mcL LAB HEMETOLOGY METHOD 03/01/2024 9:14 AM [facility] LAB Immature Granulocytes Absolute 0.02 0.00 - 0.03 K/mcL LAB HEMETOLOGY METHOD 03/01/2024 9:14 AM [facility] LAB Blood Venous blood specimen / Unknown 03/01/2024 8:20 AM EST 03/01/2024 9:05 AM EST Leann Walsh DO LAB BLOOD ORDERABLES Final Result [facility] ([facility]) [facility] [address] [place] [address], documented in this encounter Visit Diagnoses Diagnosis Presence of prosthetic heart valve Nonalcoholic steatohepatitis (JOSE) Personal history of traumatic brain injury Schizoaffective disorder, bipolar type (CMS/HCC V24, CMS/HCC V28) Schizoaffective disorder, unspecified condition documented in this encounter Care Teams Emergency Veterinary Assistant Relationship Specialty Start Date End Date Leann Roger DO [address] [place] [id number] PCP - General Psychiatry 08/31/24 documented as of this encounter
--- OUTSIDE RECORDS SUMMARY | 2025-01-07 13:22 | XMS_ITS | Encounter Summary ---
Author Organization [facility] Address [address] [place] [address] Care Team Providers Care Technology Education Instructor Name Role Phone Leann Roger DO Primary Care Provid er Encounter Details Date Type Department Care Team (Latest Contact Info) Description 12/20/2024 Lab Requisition [facility] - Main Lab [address] [place] [address] Leann Roger DO [address] [place] [address] Schizoaffective disorder, bipolar type (CMS/HCC V24, CMS/HCC V28); Personal history of traumatic brain injury; Nonalcoholic steatohepatitis (JOSE); Presence of prosthetic heart valve Social History Tobacco Use Types Packs/Day Years [...] Diagnosis Comments CBC WITH AUTO DIFFERENTIAL Routine 12/20/2024 2:00 PM EDT Schizoaffective disorder, bipolar type (CMS/HCC V24, CMS/HCC V28) Personal history of traumatic brain injury Nonalcoholic steatohepatitis (JOSE) Presence of prosthetic heart valve CBC AND DIFFERENTIAL Routine 12/20/2024 2:00 PM EDT Schizoaffective disorder, bipolar type (CMS/HCC V24, CMS/HCC V28) Personal history of traumatic brain injury Nonalcoholic steatohepatitis (JOSE) Presence of prosthetic heart valve documented in this encounter Results * (ABNORMAL) CBC auto differential (12/20/2024 2:00 PM EDT) [facility] WBC 7.2 4.8 - 10.8 K/mcL LAB HEMETOLOGY METHOD 12/20/2024 6:30 PM EDT [facility] LAB RBC 4.60 4.50 - 5.50 M/mcL LAB HEMETOLOGY METHOD 12/20/2024 6:30 PM EDT [facility] LAB Hemoglobin 12.9(L) 13.5 - 17.5 g/dL LAB HEMETOLOGY METHOD 12/20/2024 6:30 PM EDT [facility] LAB Hematocrit 40.1(L) 42.0 - 54.0 % LAB HEMETOLOGY [facility] MCV 87.2 79.0 - 98.0 FL LAB HEMETOLOGY METHOD 12/[facility] MCH 28.0 27.0 - 32.0 pcg LAB HEMETOLOGY METHOD 12/20[facility]24 [facility] MCHC 32.2 32.0 - 37.0 g/dL LAB HEMETOLOGY METHOD 12/20[facility]24 [facility] RDW 13.2 11.0 - 15.0 % LAB HEMETOLOGY METHOD 12/20[facility]24 [facility] Platelets 145 130 - 400 K/mcL LAB HEMETOLOGY METHOD 12/20/2024 6:30 PM EDT [facility] LAB MPV 12.0(H) 7.0 - 11.0 FL LAB HEMETOLOGY METHOD [facility]/20[facility] NRBC 0.0 <1.0 % LAB HEMETOLOGY METHOD 12/20/2024 6:30 PM EDT [facility] LAB NRBC Absolute 0.00 <0.10 K/[facility] LAB HEMETOLOGY METHOD 12/20/2024 6:30 PM EDT [facility] LAB Neutrophils Relative 51.0 % LAB HEMETOLOGY METHOD 12/20/2024 6:30 PM EDT [facility] LAB Lymphocytes Relative 37.2 % LAB HEMETOLOGY METHOD 12/20/2024 6:30 PM EDT [facility] LAB Monocytes Relative 7.2 % LAB HEMETOLOGY METHOD 12/20/2024 6:30 PM EDT [facility] LAB Eosinophils Relative 3.9 % LAB HEMETOLOGY METHOD 12/20/2024 6:30 PM EDT [facility] Basophils Relative 0.3 % LAB HEMETOLOGY METHOD [facility] Immature Granulocytes Relative 0.4 % LAB HEMETOLOGY METHOD 12/20/2024 6:30 PM EDT [facility] LAB Neutrophils Absolute 3.68 1.50 - 7.00 K/mcL LAB HEMETOLOGY METHOD 12/20/2024 6:30 PM EDT [facility] LAB Lymphocytes Absolute 2.68 1.00 - 5.00 K/mcL LAB HEMETOLOGY METHOD [facility]/20[facility] Monocytes Absolute 0.52 0.20 - 1.00 K/mcL LAB HEMETOLOGY METHOD 12/20/2024 6:30 PM EDT [facility] LAB Eosinophils Absolute 0.28 0.00 - 0.50 K/mcL LAB HEMETOLOGY METHOD 12/20/2024 6:30 PM EDT [facility] LAB Basophils Absolute 0.02 0.00 - 0.20 K/mcL LAB HEMETOLOGY METHOD 12/20[facility] Immature Granulocytes Absolute 0.03 0.00 - 0.03 K/mcL LAB HEMETOLOGY METHOD 12/20/2024 6:30 PM EDT [facility] LAB Blood Venous blood specimen / Unknown 12/20/2024 2:00 PM EDT 12/20/2024 5:43 PM EDT Leann Walsh DO LAB BLOOD ORDERABLES [facility] [address] [place] [address], documented in this encounter Visit Diagnoses Diagnosis Schizoaffective disorder, bipolar type (CMS/HCC V24, CMS/HCC V28) Schizoaffective disorder, unspecified condition Personal history of traumatic brain injury Nonalcoholic steatohepatitis (JOSE) Presence of prosthetic heart valve documented in this encounter Care Teams Technology Education Instructor Relationship Specialty Start Date End Date Leann Roger DO [address] [place] [id number] PCP - General Psychiatry 08/31/24 documented as of this encounter
--- OUTSIDE RECORDS SUMMARY | 2025-01-07 13:22 | XMS_ITS | Encounter Summary ---
Author Organization [facility] Address [address] [place] [address] Care Team Providers Care Sped Teacher Name Role Phone Leann Roger DO Primary Care Provid er Encounter Details Date Type Department Care Team (Latest Contact Info) Description 03/30/2024 Lab Requisition [facility] - Main Lab [address] [place] [address] Leann Roger DO [address] [place] [address] Schizoaffective disorder, bipolar type (CMS/HCC V24, CMS/HCC [...] Diagnosis Comments CBC WITH AUTO DIFFERENTIAL Routine 03/30/2024 9:05 AM EST Schizoaffective disorder, bipolar type (CMS/HCC) CBC AND DIFFERENTIAL Routine 03/30/2024 9:05 AM EST Schizoaffective disorder, bipolar type (CMS/HCC) documented in this encounter Results * (ABNORMAL) CBC auto differential (03/30/2024 9:05 AM EST) WBC 4.8 4.8 - 10.8 K/mcL LAB HEMETOLOGY METHOD 03/30/2024 11:28 AM EST [facility] ([facility]) [facility] LAB RBC 4.30(L) 4.50 - 5.50 M/mcL LAB HEMETOLOGY METHOD 03/30/2024 11:28 AM [facility] LAB Hemoglobin 12.4(L) 13.5 - 17.5 g/dL LAB HEMETOLOGY METHOD 03/30/2024 11:28 AM [facility] LAB Hematocrit 37.0(L) 42.0 - 54.0 % LAB HEMETOLOGY METHOD 03/30/2024 11:28 AM [facility] LAB MCV 85.8 79.0 - 98.0 FL LAB HEMETOLOGY METHOD 03/30/2024 11:28 AM [facility] LAB MCH 28.8 27.0 - 32.0 pcg LAB HEMETOLOGY METHOD 03/30/2024 11:28 AM [facility] LAB MCHC 33.5 32.0 - 37.0 g/dL LAB HEMETOLOGY METHOD 03/30/2024 11:28 AM [facility] LAB RDW 13.0 11.0 - 15.0 % LAB HEMETOLOGY METHOD 03/30/2024 11:28 AM [facility] LAB Platelets 133 130 - 400 K/mcL LAB HEMETOLOGY METHOD 03/30/2024 11:28 AM [facility] LAB MPV 12.3(H) 7.0 - 11.0 FL LAB HEMETOLOGY METHOD 03/30/2024 11:28 AM [facility] LAB NRBC 0.0 <1.0 % LAB HEMETOLOGY METHOD 03/30/2024 11:28 AM [facility] LAB NRBC Absolute 0.00 <0.10 K/mcL LAB HEMETOLOGY METHOD 03/30/2024 11:28 AM [facility] LAB Neutrophils Relative 46.9 % LAB HEMETOLOGY METHOD 03/30/2024 11:28 AM [facility] LAB Lymphocytes Relative 43.3 % LAB HEMETOLOGY METHOD 03/30/2024 11:28 AM [facility] LAB Monocytes Relative 6.5 % LAB HEMETOLOGY METHOD 03/30/2024 11:28 AM [facility] LAB Eosinophils Relative 2.9 % LAB HEMETOLOGY METHOD 03/30/2024 11:28 AM [facility] LAB Basophils Relative 0.2 % LAB HEMETOLOGY METHOD 03/30/2024 11:28 AM [facility] LAB Immature Granulocytes Relative 0.2 % LAB HEMETOLOGY METHOD 03/30/2024 11:28 AM [facility] LAB Neutrophils Absolute 2.23 1.50 - 7.00 K/mcL LAB HEMETOLOGY METHOD 03/30/2024 11:28 AM [facility] LAB Lymphocytes Absolute 2.06 1.00 - 5.00 K/mcL LAB HEMETOLOGY METHOD 03/30/2024 11:28 AM [facility] LAB Monocytes Absolute 0.31 0.20 - 1.00 K/mcL LAB HEMETOLOGY METHOD 03/30/2024 11:28 AM [facility] LAB Eosinophils Absolute 0.14 0.00 - 0.50 K/mcL LAB HEMETOLOGY METHOD 03/30/2024 11:28 AM [facility] LAB Basophils Absolute 0.01 0.00 - 0.20 K/mcL LAB HEMETOLOGY METHOD 03/30/2024 11:28 AM [facility] LAB Immature Granulocytes Absolute 0.01 0.00 - 0.03 K/mcL LAB HEMETOLOGY METHOD 03/30/2024 11:28 AM [facility] LAB Blood Venous blood specimen / Unknown 03/30/2024 9:05 AM EST 03/30/2024 10:36 AM EST Leann Walsh DO LAB BLOOD ORDERABLES Final Result [facility] LAB [address] [place] [address], documented in this encounter Visit Diagnoses Diagnosis Schizoaffective disorder, bipolar type (CMS/[facility] V24, CMS/[facility] V28) Schizoaffective disorder, unspecified condition documented in this encounter Care Teams Sped Teacher Relationship Specialty Start Date End Date Leann Roger DO [address] [place] [id number] PCP - General Psychiatry 08/31/24 documented as of this encounter
--- OUTSIDE RECORDS SUMMARY | 2025-01-07 13:22 | XMS_ITS | Encounter Summary ---
Author Organization [employer] [facility] Address [address] [place] [address] Care Team Providers Care Book Repairer Name Role Phone Leann Roger DO Primary Care Provid er Encounter Details Date Type Department Care Team (Latest Contact Info) Description 09/28/2024 Lab Requisition [facility] - Main Lab [address] [place] [address] Leann Roger DO [address] [place] [address] Schizoaffective disorder, depressive type (CMS/HCC V24, CMS/HCC [...] Diagnosis Comments CBC WITH AUTO DIFFERENTIAL Routine 09/28/2024 8:35 AM EDT Schizoaffective disorder, depressive type (CMS/HCC V24, CMS/HCC V28) CBC AND DIFFERENTIAL Routine 09/28/2024 8:35 AM EDT Schizoaffective disorder, depressive type (CMS/HCC V24, CMS/HCC V28) documented in this encounter Results * (ABNORMAL) CBC auto differential (09/28/2024 8:35 AM EDT) WBC 8.1 4.8 - 10.8 K/[facility] LAB HEMETOLOGY METHOD 09/28/2024 12:05 PM EDT [facility] LAB RBC 4.50 4.50 - 5.50 M/mcL LAB HEMETOLOGY METHOD 09/28/2024 12:05 PM [facility] LAB Hemoglobin 12.9(L) 13.5 - 17.5 g/dL LAB HEMETOLOGY METHOD 09/28/2024 12:05 PM [facility] LAB Hematocrit 38.0(L) 42.0 - 54.0 % LAB HEMETOLOGY METHOD 09/28/2024 12:05 PM [facility] LAB MCV 84.8 79.0 - 98.0 FL LAB HEMETOLOGY METHOD 09/28/2024 12:05 PM [facility] LAB MCH 28.8 27.0 - 32.0 pcg LAB HEMETOLOGY METHOD 09/28/2024 12:05 PM [facility] LAB MCHC 33.9 32.0 - 37.0 g/dL LAB HEMETOLOGY METHOD 09/28/2024 12:05 PM [facility] LAB RDW 13.1 11.0 - 15.0 % LAB HEMETOLOGY METHOD 09/28/2024 12:05 PM [facility] LAB Platelets 151 130 - 400 K/mcL LAB HEMETOLOGY METHOD 09/28/2024 12:05 PM [facility] LAB MPV 12.3(H) 7.0 - 11.0 FL LAB HEMETOLOGY METHOD 09/28/2024 12:05 PM [facility] LAB NRBC 0.0 <1.0 % LAB HEMETOLOGY METHOD 09/28/2024 12:05 PM [facility] LAB NRBC Absolute 0.00 <0.10 K/mcL LAB HEMETOLOGY METHOD 09/28/2024 12:05 PM [facility] LAB Neutrophils Relative 53.3 % LAB HEMETOLOGY METHOD 09/28/2024 12:05 PM [facility] LAB Lymphocytes Relative 34.6 % LAB HEMETOLOGY METHOD 09/28/2024 12:05 PM [facility] LAB Monocytes Relative 7.2 % LAB HEMETOLOGY METHOD 09/28/2024 12:05 PM [facility] LAB Eosinophils Relative 4.5 % LAB HEMETOLOGY METHOD 09/28/2024 12:05 PM [facility] LAB Basophils Relative 0.2 % LAB HEMETOLOGY METHOD 09/28/2024 12:05 PM [facility] LAB Immature Granulocytes Relative 0.2 % LAB HEMETOLOGY METHOD 09/28/2024 12:05 PM [facility] LAB Neutrophils Absolute 4.29 1.50 - 7.00 K/mcL LAB HEMETOLOGY METHOD 09/28/2024 12:05 PM [facility] LAB Lymphocytes Absolute 2.79 1.00 - 5.00 K/mcL LAB HEMETOLOGY METHOD 09/28/2024 12:05 PM [facility] LAB Monocytes Absolute 0.58 0.20 - 1.00 K/mcL LAB HEMETOLOGY METHOD 09/28/2024 12:05 PM [facility] LAB Eosinophils Absolute 0.36 0.00 - 0.50 K/mcL LAB HEMETOLOGY METHOD 09/28/2024 12:05 PM [facility] LAB Basophils Absolute 0.02 0.00 - 0.20 K/mcL LAB HEMETOLOGY METHOD 09/28/2024 12:05 PM [facility] LAB Immature Granulocytes Absolute 0.02 0.00 - 0.03 K/mcL LAB HEMETOLOGY METHOD 09/28/2024 12:05 PM [facility] LAB Blood Venous blood specimen / Unknown 09/28/2024 8:35 AM EDT 09/28/2024 11:32 AM EDT us Leann Walsh DO LAB BLOOD ORDERABLES Final Result [facility] ([facility]) [facility] LAB [address] [place] [address], documented in this encounter Visit Diagnoses Diagnosis Schizoaffective disorder, depressive type (CMS/HCC V24, CMS/HCC V28) Schizoaffective disorder, unspecified condition documented in this encounter Care Teams Book Repairer Relationship Specialty Start Date End Date Leann Roger DO [address] [place] [place] [id number] PCP - General Psychiatry 08/31/24 documented as of this encounter
--- OUTSIDE RECORDS SUMMARY | 2025-01-07 13:22 | XMS_ITS | Encounter Summary ---
Author Organization [facility] Address [address] [place] [address] Care Team Providers Care Handicapper Harness Racing Name Role Phone Leann Roger DO Primary Care Provid er Encounter Details Date Type Department Care Team (Latest Contact Info) Description 05/23/2024 Lab Requisition [facility] - Main Lab [address] [place] [address] Leann Roger DO [address] [place] [address] Schizoaffective disorder, bipolar type (CMS/HCC V24, CMS/HCC [...] Diagnosis Comments CBC WITH AUTO DIFFERENTIAL Routine 05/23/2024 8:35 AM EDT Schizoaffective disorder, bipolar type (CMS/HCC) CBC AND DIFFERENTIAL Routine 05/23/2024 8:35 AM EDT Schizoaffective disorder, bipolar type (CMS/HCC) documented in this encounter Results * (ABNORMAL) CBC auto differential (05/23/2024 8:35 AM EDT) WBC 5.9 4.8 - 10.8 K/mcL LAB HEMETOLOGY METHOD 05/23/2024 9:35 AM EDT [facility]) [facility] LAB RBC 4.30(L) 4.50 - 5.50 M/mcL LAB HEMETOLOGY METHOD 05/23/2024 9:35 AM [facility] LAB Hemoglobin 12.5(L) 13.5 - 17.5 g/dL LAB HEMETOLOGY METHOD 05/23/2024 9:35 AM [facility] LAB Hematocrit 38.1(L) 42.0 - 54.0 % LAB HEMETOLOGY METHOD 05/23/2024 9:35 AM [facility] LAB MCV 87.8 79.0 - 98.0 FL LAB HEMETOLOGY METHOD 05/23/2024 9:35 AM [facility] LAB MCH 28.8 27.0 - 32.0 pcg LAB HEMETOLOGY METHOD 05/23/2024 9:35 AM [facility] LAB MCHC 32.8 32.0 - 37.0 g/dL LAB HEMETOLOGY METHOD 05/23/2024 9:35 AM [facility] LAB RDW 12.8 11.0 - 15.0 % LAB HEMETOLOGY METHOD 05/23/2024 9:35 AM [facility] LAB Platelets 136 130 - 400 K/mcL LAB HEMETOLOGY METHOD 05/23/2024 9:35 AM [facility] LAB MPV 11.3(H) 7.0 - 11.0 FL LAB HEMETOLOGY METHOD 05/23/2024 9:35 AM [facility] LAB NRBC 0.0 <1.0 % LAB HEMETOLOGY METHOD 05/23/2024 9:35 AM [facility] LAB NRBC Absolute 0.00 <0.10 K/mcL LAB HEMETOLOGY METHOD 05/23/2024 9:35 AM [facility] LAB Neutrophils Relative 54.3 % LAB HEMETOLOGY METHOD 05/23/2024 9:35 AM [facility] LAB Lymphocytes Relative 32.9 % LAB HEMETOLOGY METHOD 05/23/2024 9:35 AM [facility] LAB Monocytes Relative 6.4 % LAB HEMETOLOGY METHOD 05/23/2024 9:35 AM [facility] LAB Eosinophils Relative 5.7 % LAB HEMETOLOGY METHOD 05/23/2024 9:35 AM [facility] LAB Basophils Relative 0.5 % LAB HEMETOLOGY METHOD 05/23/2024 9:35 AM [facility] LAB Immature Granulocytes Relative 0.2 % LAB HEMETOLOGY METHOD 05/23/2024 9:35 AM [facility] LAB Neutrophils Absolute 3.21 1.50 - 7.00 K/mcL LAB HEMETOLOGY METHOD 05/23/2024 9:35 AM [facility] LAB Lymphocytes Absolute 1.95 1.00 - 5.00 K/mcL LAB HEMETOLOGY METHOD 05/23/2024 9:35 AM [facility] LAB Monocytes Absolute 0.38 0.20 - 1.00 K/mcL LAB HEMETOLOGY METHOD 05/23/2024 9:35 AM [facility] LAB Eosinophils Absolute 0.34 0.00 - 0.50 K/mcL LAB HEMETOLOGY METHOD 05/23/2024 9:35 AM [facility] LAB Basophils Absolute 0.03 0.00 - 0.20 K/mcL LAB HEMETOLOGY METHOD 05/23/2024 9:35 AM [facility] LAB Immature Granulocytes Absolute 0.01 0.00 - 0.03 K/mcL LAB HEMETOLOGY METHOD 05/23/2024 9:35 AM [facility] LAB Blood Venous blood specimen / Unknown 05/23/2024 8:35 AM EDT 05/23/2024 9:07 AM EDT Leann Callahan Walsh DO LAB BLOOD ORDERABLES Final Result [facility] LAB [address] [place] [address], documented in this encounter Visit Diagnoses Diagnosis Schizoaffective disorder, bipolar type (CMS/HCC V24, CMS/HCC V28) Schizoaffective disorder, unspecified condition documented in this encounter Care Teams Handicapper Harness Racing Relationship Specialty Start Date End Date Leann Roger DO [address] [place] [phone] PCP - General Psychiatry 08/31/24 documented as of this encounter
--- OUTSIDE RECORDS SUMMARY | 2025-01-07 13:22 | XMS_ITS | Encounter Summary ---
Author Organization [facility] Address [address] [place] [address] Care Team Providers Care Injection Molding Machine Offbearer Name Role Phone Leann Roger DO Primary Care Provid er Encounter Details Date Type Department Care Team (Latest Contact Info) Description 02/02/2024 Lab Requisition [facility] - Main Lab [address] [place] [address] Leann Roger DO [address] [place] [address] Schizoaffective disorder, bipolar type (CMS/HCC V24, CMS/HCC [...] Diagnosis Comments CBC WITH AUTO DIFFERENTIAL Routine 02/02/2024 8:29 AM EST Schizoaffective disorder, bipolar type (CMS/HCC) CBC AND DIFFERENTIAL Routine 02/02/2024 8:29 AM EST Schizoaffective disorder, bipolar type (CMS/HCC) documented in this encounter Results * (ABNORMAL) CBC auto differential (02/02/2024 8:29 AM EST) WBC 6.4 4.8 - 10.8 K/[facility] LAB HEMETOLOGY METHOD 02/02/2024 10:43 AM EST [facility] LAB RBC 4.50 4.50 - 5.50 M/mcL LAB HEMETOLOGY METHOD 02/02/2024 10:43 AM [facility] LAB Hemoglobin 12.9(L) 13.5 - 17.5 g/dL LAB HEMETOLOGY METHOD 02/02/2024 10:43 AM [facility] LAB Hematocrit 38.2(L) 42.0 - 54.0 % LAB HEMETOLOGY METHOD 02/02/2024 10:43 AM [facility] LAB MCV 85.7 79.0 - 98.0 FL LAB HEMETOLOGY METHOD 02/02/2024 10:43 AM [facility] LAB MCH 28.9 27.0 - 32.0 pcg LAB HEMETOLOGY METHOD 02/02/2024 10:43 AM [facility] LAB MCHC 33.8 32.0 - 37.0 g/dL LAB HEMETOLOGY METHOD 02/02/2024 10:43 AM [facility] LAB RDW 12.8 11.0 - 15.0 % LAB HEMETOLOGY METHOD 02/02/2024 10:43 AM [facility] LAB Platelets 140 130 - 400 K/mcL LAB HEMETOLOGY METHOD 02/02/2024 10:43 AM [facility] LAB MPV 11.9(H) 7.0 - 11.0 FL LAB HEMETOLOGY METHOD 02/02/2024 10:43 AM [facility] LAB NRBC 0.0 <1.0 % LAB HEMETOLOGY METHOD 02/02/2024 10:43 AM [facility] LAB NRBC Absolute 0.00 <0.10 K/mcL LAB HEMETOLOGY METHOD 02/02/2024 10:43 AM [facility] LAB Neutrophils Relative 51.9 % LAB HEMETOLOGY METHOD 02/02/2024 10:43 AM [facility] LAB Lymphocytes Relative 36.9 % LAB HEMETOLOGY METHOD 02/02/2024 10:43 AM [facility] LAB Monocytes Relative 7.3 % LAB HEMETOLOGY METHOD 02/02/2024 10:43 AM [facility] LAB Eosinophils Relative 3.3 % LAB HEMETOLOGY METHOD 02/02/2024 10:43 AM [facility] LAB Basophils Relative 0.3 % LAB HEMETOLOGY METHOD 02/02/2024 10:43 AM [facility] LAB Immature Granulocytes Relative 0.3 % LAB HEMETOLOGY METHOD 02/02/2024 10:43 AM [facility] LAB Neutrophils Absolute 3.34 1.50 - 7.00 K/mcL LAB HEMETOLOGY METHOD 02/02/2024 10:43 AM [facility] LAB Lymphocytes Absolute 2.37 1.00 - 5.00 K/mcL LAB HEMETOLOGY METHOD 02/02/2024 10:43 AM [facility] LAB Monocytes Absolute 0.47 0.20 - 1.00 K/mcL LAB HEMETOLOGY METHOD 02/02/2024 10:43 AM [facility] LAB Eosinophils Absolute 0.21 0.00 - 0.50 K/mcL LAB HEMETOLOGY METHOD 02/02/2024 10:43 AM [facility] LAB Basophils Absolute 0.02 0.00 - 0.20 K/mcL LAB HEMETOLOGY METHOD 02/02/2024 10:43 AM [facility] LAB Immature Granulocytes Absolute 0.02 0.00 - 0.03 K/mcL LAB HEMETOLOGY METHOD 02/02/2024 10:43 AM [facility] LAB Blood Venous blood specimen / Unknown 02/02/2024 8:29 AM EST 02/02/2024 10:38 AM EST Leann Walsh DO LAB BLOOD ORDERABLES Final Result [facility] LAB [address] [place] [address], documented in this encounter Visit Diagnoses Diagnosis Schizoaffective disorder, bipolar type (CMS/[facility] V24, CMS/HCC V28) Schizoaffective disorder, unspecified condition documented in this encounter Care Teams Injection Molding Machine Offbearer Relationship Specialty Start Date End Date Leann Roger DO [address] [place] [phone] PCP - General Psychiatry 08/31/24 documented as of this encounter
--- OUTSIDE RECORDS SUMMARY | 2025-01-07 13:22 | XMS_ITS | Encounter Summary ---
Author Organization [facility] Address [address] [place] [address] Care Team Providers Care Solid Fiber Paster Operator Name Role Phone Leann Roger DO Primary Care Provid er Encounter Details Date Type Department Care Team (Latest Contact Info) Description 04/27/2024 Lab Requisition [facility] - Main Lab [address] [place] [address] Leann Roger DO [address] [place] [address] Schizoaffective disorder, bipolar type (CMS/HCC V24, CMS/HCC [...] Diagnosis Comments CBC WITH AUTO DIFFERENTIAL Routine 04/27/2024 9:25 AM EST Schizoaffective disorder, bipolar type (CMS/HCC) CBC AND DIFFERENTIAL Routine 04/27/2024 9:25 AM EST Schizoaffective disorder, bipolar type (CMS/HCC) documented in this encounter Results * (ABNORMAL) CBC auto differential (04/27/2024 9:25 AM EST) WBC 6.4 4.8 - 10.8 K/[facility] LAB HEMETOLOGY METHOD 04/27/2024 11:21 AM EST [facility] LAB RBC 4.60 4.50 - 5.50 M/mcL LAB HEMETOLOGY METHOD 04/27/2024 11:21 AM [facility] LAB Hemoglobin 13.2(L) 13.5 - 17.5 g/dL LAB HEMETOLOGY METHOD 04/27/2024 11:21 AM [facility] LAB Hematocrit 39.4(L) 42.0 - 54.0 % LAB HEMETOLOGY METHOD 04/27/2024 11:21 AM [facility] LAB MCV 86.4 79.0 - 98.0 FL LAB HEMETOLOGY METHOD 04/27/2024 11:21 AM [facility] LAB MCH 28.9 27.0 - 32.0 pcg LAB HEMETOLOGY METHOD 04/27/2024 11:21 AM [facility] LAB MCHC 33.5 32.0 - 37.0 g/dL LAB HEMETOLOGY METHOD 04/27/2024 11:21 AM [facility] LAB RDW 13.2 11.0 - 15.0 % LAB HEMETOLOGY METHOD 04/27/2024 11:21 AM [facility] LAB Platelets 142 130 - 400 K/mcL LAB HEMETOLOGY METHOD 04/27/2024 11:21 AM [facility] LAB MPV 12.0(H) 7.0 - 11.0 FL LAB HEMETOLOGY METHOD 04/27/2024 11:21 AM [facility] LAB NRBC 0.0 <1.0 % LAB HEMETOLOGY METHOD 04/27/2024 11:21 AM [facility] LAB NRBC Absolute 0.00 <0.10 K/mcL LAB HEMETOLOGY METHOD 04/27/2024 11:21 AM [facility] LAB Neutrophils Relative 53.5 % LAB HEMETOLOGY METHOD 04/27/2024 11:21 AM [facility] LAB Lymphocytes Relative 34.7 % LAB HEMETOLOGY METHOD 04/27/2024 11:21 AM [facility] LAB Monocytes Relative 6.7 % LAB HEMETOLOGY METHOD 04/27/2024 11:21 AM [facility] LAB Eosinophils Relative 4.5 % LAB HEMETOLOGY METHOD 04/27/2024 11:21 AM [facility] LAB Basophils Relative 0.3 % LAB HEMETOLOGY METHOD 04/27/2024 11:21 AM [facility] LAB Immature Granulocytes Relative 0.3 % LAB HEMETOLOGY METHOD 04/27/2024 11:21 AM [facility] LAB Neutrophils Absolute 3.44 1.50 - 7.00 K/mcL LAB HEMETOLOGY METHOD 04/27/2024 11:21 AM [facility] LAB Lymphocytes Absolute 2.23 1.00 - 5.00 K/mcL LAB HEMETOLOGY METHOD 04/27/2024 11:21 AM [facility] LAB Monocytes Absolute 0.43 0.20 - 1.00 K/mcL LAB HEMETOLOGY METHOD 04/27/2024 11:21 AM [facility] LAB Eosinophils Absolute 0.29 0.00 - 0.50 K/mcL LAB HEMETOLOGY METHOD 04/27/2024 11:21 AM [facility] LAB Basophils Absolute 0.02 0.00 - 0.20 K/mcL LAB HEMETOLOGY METHOD 04/27/2024 11:21 AM [facility] LAB Immature Granulocytes Absolute 0.02 0.00 - 0.03 K/mcL LAB HEMETOLOGY METHOD 04/27/2024 11:21 AM [facility] LAB Blood Venous blood specimen / Unknown 04/27/2024 9:25 AM EST 04/27/2024 10:53 AM EST Leann Walsh DO LAB BLOOD ORDERABLES Final Result [facility] LAB [address] [place] [address], documented in this encounter Visit Diagnoses Diagnosis Schizoaffective disorder, bipolar type (CMS/[facility] V24, CMS/HCC V28) Schizoaffective disorder, unspecified condition documented in this encounter Care Teams Solid Fiber Paster Operator Relationship Specialty Start Date End Date Leann Roger DO [address] [place] [phone] PCP - General Psychiatry 08/31/24 documented as of this encounter
--- OUTSIDE RECORDS SUMMARY | 2025-01-07 13:22 | XMS_ITS | Clinical Summary ---
Author Organization [address] [facility] Address [address] [place] [address] Phone Care Team Providers Care Account Group Supervisor Name Role Phone Leann Roger DO Primary Care Provid er Encounters Date Type Department Care Team Description 12/20/2024 Lab Requisition [facility] Lab [address] [place] [phone] Leann Roger DO Schizoaffective disorder, bipolar type ([facility]/HCC V24, [facility]/HCC V28); Personal history of traumatic brain injury; Nonalcoholic steatohepatitis (JOSE); Presence of prosthetic heart valve 10/27/2024 Lab Requisition [facility] Lab [address] [place] [phone] Leann Roger DO Schizoaffective disorder, bipolar type ([facility]/HCC V24, CMS/HCC V28) from Last 3 Months Social History Tobacco Use Types Packs/Day Years Used Date Smoking Tobacco: Never Assessed Sex and Gender Information Value Date Recorded Sex Assigned at Not on file Legal Sex Male 12:15 AM EST Gender Identity Not on file Sexual Orientation Not on file Plan of Treatment Health Maintenance Due Date Last Done Comments DTaP,Tdap,and Td Vaccines (1 - Tdap) 05/26/1999 Hepatitis B Vaccines (1 of 3 - 19+ 3-dose series) 05/26/1999 HPV Vaccines (1 - 3-dose SCD M series) 05/26/2007 Cholesterol Screening (Lipid Panel) 01/05/2024 HIV Screening 01/05/2024 Hepatitis C Screening 01/05/2024 Social Influencers of Health Screening 01/05/2024 Depression Screening 02/29/2024 COVID-19 Vaccine ( - 2023-2 5 season) 2024 Influenza Vaccine (#1) 2024 RSV Immunization Adult Patie nts (1 - 1-dose 75+ series) 05/26/2055 HIB Vaccines Aged Out No longer eligi ble based on patient's age to complete this topic Hepatitis A Vaccines Aged Out No long er eligible based on patient's age to complete this topic IPV Vaccines Aged Out No longer eligi ble based on patient's age to complete this topic MMR Vaccines Aged Out No longer eligi ble based on patient's age to complete this topic Meningococcal ACWY Vaccine Aged Out N o longer eligible based on patient's age to complete this topic Meningococcal B Vaccine Aged Out No l onger eligible based on patient's age to complete this topic Pneumococcal Vaccine: Pediat rics (0 to 5 Years) and At-Risk Patients (6 to 49 Years) Aged Out No longer eligible b ased on patient's age to complete this topic RSV Immunization Patients Un marlena 20 months Aged Out No longer eligible b ased on patient's age to complete this topic Varicella Vaccines Aged Out No longer eligible based on patient's age to complete this topic Procedures Procedure Name Priority Date/Time Associated Diagnosis [...] (JOSE) Presence of prosthetic heart valve CBC WITH AUTO DIFFERENTIAL Routine 10/27/2024 5:30 PM EDT Schizoaffective disorder, bipolar type (CMS/HCC V24, CMS/HCC V28) CBC AND DIFFERENTIAL Routine 10/27/2024 5:30 PM EDT Schizoaffective disorder, bipolar type (CMS/HCC V24, CMS/HCC V28) from Last 3 Months Results * (ABNORMAL) CBC auto differential (12/20/2024 2:00 PM EDT) Only the most recent of2 resultswithin the time period is included. WBC 7.2 4.8 - 10.8 K/mcL LAB HEMETOLOGY METHOD 12/20/2024 6:30 PM EDT [facility] LAB RBC 4.60 4.50 - 5.50 M/mcL LAB HEMETOLOGY METHOD 12/20/2024 6:30 PM EDT [facility] LAB Hemoglobin 12.9(L) 13.5 - 17.5 g/dL LAB HEMETOLOGY METHOD 12/20/2024 6:30 PM EDT [facility] LAB Hematocrit 40.1(L) 42.0 - 54.0 % LAB HEM[facility]OLOGY [facility] MCV 87.2 79.0 - 98.0 FL LAB HEMETOLOGY METHOD 12/20/2024 6:30 PM EDT [facility] LAB MCH 28.0 27.0 - 32.0 pcg LAB HEMETOLOGY METHOD 12/20/2024 6:30 PM EDT [facility] LAB MCHC 32.2 32.0 - 37.0 g/dL LAB HEMETOLOGY METHOD [facility]24 [facility] RDW 13.2 11.0 - 15.0 % LAB HEMETOLOGY METHOD 12/20/2024 6:30 PM EDT [facility] LAB Platelets 145 130 - 400 K/mcL LAB HEMETOLOGY METHOD 12/20/2024 6:30 PM EDT [facility] LAB MPV 12.0(H) 7.0 - 11.0 FL LAB HEMETOLOGY METHOD [facility]/20[facility]24 [facility] NRBC 0.0 <1.0 % LAB HEMETOLOGY METHOD 12/20/2024 6:30 PM EDT [facility] LAB NRBC Absolute 0.00 <0.10 K/mcL LAB HEMETOLOGY METHOD 12/20/2024 6:30 PM EDT [facility] LAB Neutrophils Relative 51.0 % LAB HEMETOLOGY METHOD 12/20/2024 6:30 PM EDT [facility] LAB Lymphocytes Relative 37.2 % LAB HEMETOLOGY METHOD 12/20/2024 6:30 PM EDT [facility] LAB Monocytes Relative 7.2 % LAB HEMETOLOGY METHOD 12/20/2024 6:30 PM EDT [facility] LAB Eosinophils Relative 3.9 % LAB HEMETOLOGY METHOD 12/20/2024 6:30 PM EDT [facility] LAB Basophils Relative 0.3 % LAB HEMETOLOGY METHOD 12/20/2024 6:30 PM EDT [facility] LAB Immature Granulocytes Relative 0.4 % LAB HEMETOLOGY METHOD 12/20/2024 6:30 PM EDT [facility] LAB Neutrophils Absolute 3.68 1.50 - 7.00 K/mcL LAB HEMETOLOGY METHOD 12/20/2024 6:30 PM EDT [facility] LAB Lymphocytes Absolute 2.68 1.00 - 5.00 K/mcL LAB HEMETOLOGY METHOD 12/20/2024 6:30 PM EDT [facility] LAB Monocytes Absolute 0.52 0.20 - 1.00 K/mcL LAB HEMETOLOGY METHOD 12/20/2024 6:30 PM EDT [facility] LAB Eosinophils Absolute 0.28 0.00 - 0.50 K/mcL LAB HEMETOLOGY METHOD 12/20/2024 6:30 PM EDT [facility] LAB Basophils Absolute 0.02 0.00 - 0.20 K/mcL LAB HEMETOLOGY METHOD 12/20/2024 6:30 PM EDT [facility] LAB Immature Granulocytes Absolute 0.03 0.00 - 0.03 K/mcL LAB HEMETOLOGY METHOD 12/20/2024 6:30 PM EDT [facility]) [facility] LAB Blood Venous blood specimen / Unknown 12/20/2024 2:00 PM EDT 12/20/2024 5:43 PM EDT us Leann Walsh DO LAB BLOOD ORDERABLES Final Result [facility] ([facility]) [facility] LAB [address] [place] [address], from Last 3 Months Insurance [facility] [id number] Care Teams Account Group Supervisor Relationship Specialty Start Date End Date Leann Roger DO [address] [place] [id number] PCP - General Psychiatry 08/31/24
--- OUTSIDE RECORDS SUMMARY | 2025-01-07 13:22 | XMS_ITS | Encounter Summary ---
Author Organization [facility] Address [address] [place] [address] Care Team Providers Care Cisco Consultant Name Role Phone Leann Roger DO Primary Care Provid er Encounter Details Date Type Department Care Team (Latest Contact Info) Description 01/05/2024 Lab Requisition [facility] Lab [address] [place] [phone] Leann Roger DO [address] [place] [address] Schizoaffective disorder, bipolar type (CMS/HCC V24, CMS/HCC [...] Diagnosis Comments CBC WITH AUTO DIFFERENTIAL Routine 01/05/2024 8:45 AM EST Schizoaffective disorder, bipolar type (CMS/HCC) CBC AND DIFFERENTIAL Routine 01/05/2024 8:45 AM EST Schizoaffective disorder, bipolar type (CMS/HCC) documented in this encounter Results * (ABNORMAL) CBC auto differential (01/05/2024 8:45 AM EST) WBC 6.5 4.8 - 10.8 K/[facility] LAB HEMETOLOGY METHOD 01/05/2024 10:04 AM EST [facility] RBC 4.60 4.50 - 5.50 M/mcL LAB HEMETOLOGY METHOD 01/05/2024 10:04 AM [facility] LAB Hemoglobin 13.2(L) 13.5 - 17.5 g/dL LAB HEMETOLOGY METHOD 01/05/2024 10:04 AM [facility] LAB Hematocrit 39.3(L) 42.0 - 54.0 % LAB HEMETOLOGY METHOD 01/05/2024 10:04 AM [facility] LAB MCV 85.8 79.0 - 98.0 FL LAB HEMETOLOGY METHOD 01/05/2024 10:04 AM [facility] LAB MCH 28.8 27.0 - 32.0 pcg LAB HEMETOLOGY METHOD 01/05/2024 10:04 AM [facility] LAB MCHC 33.6 32.0 - 37.0 g/dL LAB HEMETOLOGY METHOD 01/05/2024 10:04 AM [facility] LAB RDW 12.8 11.0 - 15.0 % LAB HEMETOLOGY METHOD 01/05/2024 10:04 AM [facility] LAB Platelets 132 130 - 400 K/mcL LAB HEMETOLOGY METHOD 01/05/2024 10:04 AM [facility] LAB MPV 11.5(H) 7.0 - 11.0 FL LAB HEMETOLOGY METHOD 01/05/2024 10:04 AM [facility] LAB NRBC 0.0 <1.0 % LAB HEMETOLOGY METHOD 01/05/2024 10:04 AM [facility] LAB NRBC Absolute 0.00 <0.10 K/mcL LAB HEMETOLOGY METHOD 01/05/2024 10:04 AM [facility] LAB Neutrophils Relative 54.3 % LAB HEMETOLOGY METHOD 01/05/2024 10:04 AM [facility] LAB Lymphocytes Relative 35.3 % LAB HEMETOLOGY METHOD 01/05/2024 10:04 AM [facility] LAB Monocytes Relative 5.8 % LAB HEMETOLOGY METHOD 01/05/2024 10:04 AM [facility] LAB Eosinophils Relative 3.8 % LAB HEMETOLOGY METHOD 01/05/2024 10:04 AM [facility] LAB Basophils Relative 0.5 % LAB HEMETOLOGY METHOD 01/05/2024 10:04 AM [facility] LAB Immature Granulocytes Relative 0.3 % LAB HEMETOLOGY METHOD 01/05/2024 10:04 AM [facility] LAB Neutrophils Absolute 3.54 1.50 - 7.00 K/mcL LAB HEMETOLOGY METHOD 01/05/2024 10:04 AM [facility] LAB Lymphocytes Absolute 2.30 1.00 - 5.00 K/mcL LAB HEMETOLOGY METHOD 01/05/2024 10:04 AM [facility] LAB Monocytes Absolute 0.38 0.20 - 1.00 K/mcL LAB HEMETOLOGY METHOD 01/05/2024 10:04 AM [facility] LAB Eosinophils Absolute 0.25 0.00 - 0.50 K/mcL LAB HEMETOLOGY METHOD 01/05/2024 10:04 AM [facility] LAB Basophils Absolute 0.03 0.00 - 0.20 K/mcL LAB HEMETOLOGY METHOD 01/05/2024 10:04 AM [facility] LAB Immature Granulocytes Absolute 0.02 0.00 - 0.03 K/mcL LAB HEMETOLOGY METHOD 01/05/2024 10:04 AM [facility] LAB Blood Venous blood specimen / Unknown 01/05/2024 8:45 AM EST 01/05/2024 9:45 AM EST Leann Walsh DO LAB BLOOD ORDERABLES Final Result [facility] LAB [address] [place] [address], documented in this encounter Visit Diagnoses Diagnosis Schizoaffective disorder, bipolar type (CMS/[facility] V24, CMS/HCC V28) Schizoaffective disorder, unspecified condition documented in this encounter Care Teams Cisco Consultant Relationship Specialty Start Date End Date Leann Roger DO [address] [place] [id number] PCP - General Psychiatry 08/31/24 documented as of this encounter
--- OUTSIDE RECORDS SUMMARY | 2025-01-07 13:23 | XMS_ITS | Encounter Summary ---
Author Organization [facility] Address [address] [place] [address] Care Team Providers Care Port Cdl A Driver Name Role Phone Leann Roger DO Primary Care Provid er Encounter Details Date Type Department Care Team (Latest Contact Info) Description 10/27/2024 Lab Requisition [facility] - [facility] Lab [address] [place] [address] Leann Roger DO [address] [place] [address] Schizoaffective disorder, bipolar type (CMS/HCC V24, CMS/HCC [...] Diagnosis Comments CBC WITH AUTO DIFFERENTIAL Routine 10/27/2024 5:30 PM EDT Schizoaffective disorder, bipolar type (CMS/HCC V24, CMS/HCC V28) CBC AND DIFFERENTIAL Routine 10/27/2024 5:30 PM EDT Schizoaffective disorder, bipolar type (CMS/HCC V24, CMS/HCC V28) documented in this encounter Results * (ABNORMAL) CBC auto differential (10/27/2024 5:30 PM EDT) WBC 7.6 4.8 - 10.8 K/[facility] LAB HEMETOLOGY METHOD 10/27/2024 6:32 PM EDT [facility] RBC 4.10(L) 4.50 - 5.50 M/mcL LAB HEMETOLOGY METHOD 10/27/2024 6:32 PM EDT [facility] LAB Hemoglobin 11.9(L) 13.5 - 17.5 g/dL LAB HEMETOLOGY METHOD 10/27/2024 6:32 PM EDT [facility] LAB Hematocrit 34.4(L) 42.0 - 54.0 % LAB HEMETOLOGY METHOD 10/27/2024 6:32 PM EDT [facility] LAB MCV 84.3 79.0 - 98.0 FL LAB HEMETOLOGY METHOD 10/27/2024 6[facility] MCH 29.2 27.0 - 32.0 pcg LAB HEMETOLOGY METHOD 10/27/2024 6[facility] MCHC 34.6 32.0 - 37.0 g/dL LAB HEMETOLOGY METHOD 10/27/2024 6:32 PM EDT [facility] LAB RDW 12.9 11.0 - 15.0 % LAB HEMETOLOGY METHOD 10/27/2024 6:[facility] Platelets 170 130 - 400 K/mcL LAB HEMETOLOGY METHOD 10/27/2024 6:32 PM [facility] LAB MPV 11.3(H) 7.0 - 11.0 FL LAB HEMETOLOGY METHOD 10/27/2024 6:32 PM EDT [facility] LAB NRBC 0.0 <1.0 % LAB HEMETOLOGY METHOD 10/27/2024 6:32 PM EDT [facility] LAB NRBC Absolute 0.00 <0.10 K/mcL LAB HEMETOLOGY METHOD 10/27/2024 6:32 PM EDT [facility] LAB Neutrophils Relative 51.8 % LAB HEMETOLOGY METHOD 10/27[facility]2024 6[facility] Lymphocytes Relative 37.3 % LAB HEMETOLOGY METHOD 10/27/2024 6:32 PM EDT [facility] LAB Monocytes Relative 5.7 % LAB HEMETOLOGY METHOD 10/27/2024 6:[facility] Eosinophils Relative 4.5 % LAB HEMETOLOGY METHOD 10/27/2024 6:32 PM EDT [facility] LAB Basophils Relative 0.4 % LAB HEMETOLOGY METHOD 10/27/2024 6:[facility] Immature Granulocytes Relative 0.3 % LAB HEMETOLOGY METHOD 10/27/2024 6:[facility] Neutrophils Absolute 3.93 1.50 - 7.00 K/mcL LAB HEMETOLOGY METHOD 10/27/2024 6:[facility] Lymphocytes Absolute 2.82 1.00 - 5.00 K/mcL LAB HEMETOLOGY METHOD 10/27/2024 6:32 PM EDT [facility] LAB Monocytes Absolute 0.43 0.20 - 1.00 K/mcL LAB HEMETOLOGY METHOD 10/27/2024 6:32 PM [facility] LAB Eosinophils Absolute 0.34 0.00 - 0.50 K/mcL LAB HEMETOLOGY METHOD 10/27/2024 6:32 PM EDT [facility] LAB Basophils Absolute 0.03 0.00 - 0.20 K/mcL LAB HEMETOLOGY METHOD 10/27/2024 6:32 PM T [facility] LAB Immature Granulocytes Absolute 0.02 0.00 - 0.03 K/mcL LAB HEMETOLOGY METHOD 10/27/2024 6:32 PM [facility] LAB Blood Venous blood specimen / Unknown 10/27/2024 5:30 PM EDT 10/27/2024 6:19 PM EDT us Leann Walsh DO LAB BLOOD ORDERABLES Final Result [facility] [address] [place], [place] , documented in this encounter Visit Diagnoses Diagnosis Schizoaffective disorder, bipolar type (CMS/HCC V24, CMS/HCC V28) Schizoaffective disorder, unspecified condition documented in this encounter Care Teams Port Cdl A Driver Relationship Specialty Start Date End Date Leann Roger DO [address] [place] [id number] PCP - General Psychiatry 08/31/24 documented as of this encounter
== END 2025-01-07 11:46 | disposition home or self-care (01) ==
LOC: HO.HMCH 11:03
PROVIDERS: PCP Internal Medicine
DX: Z00.00 Encounter for general adult medical examination without abnormal findings (principal); E66.3 Overweight; Z98.890 Other specified postprocedural states; Z86.79 Personal history of other diseases of the circulatory system; R73.02 Impaired glucose tolerance (oral); K21.9 Gastro-esophageal reflux disease without esophagitis; I37.0 Nonrheumatic pulmonary valve stenosis; F20.9 Schizophrenia, unspecified; I10 Essential (primary) hypertension; E78.00 Pure hypercholesterolemia, unspecified; R73.03 Prediabetes

== ENCOUNTER → 2025-01-07 11:02 | Outpatient (BNVA) | payer OTHER, SELFPAY | PROVIDERS: PCP Internal Medicine | DX: Z00.00 Encounter for general adult medical examination without abnormal findings (principal); F20.9 Schizophrenia, unspecified; I10 Essential (primary) hypertension; E78.00 Pure hypercholesterolemia, unspecified; R73.03 Prediabetes; R73.02 Impaired glucose tolerance (oral); E66.3 Overweight; K21.9 Gastro-esophageal reflux disease without esophagitis; I37.0 Nonrheumatic pulmonary valve stenosis; Z98.890 Other specified postprocedural states; Z86.79 Personal history of other diseases of the circulatory system | CPT/HCPCS: 96127; 99396 ==